=== PATIENT | female | born 1940 | race Caucasian/White ===

== ENCOUNTER 2017-06-18 10:22 | Emergency (ER) | payer BC, MEDICARE, OTHER ==
[~2017-06-18] VITALS: Ht 152.4 cm; Wt 87.7 kg
[~2017-06-18 10:22] MED LIST: ACET1TAB84 PO; ACT15 PO; ATEN50TA8 PO; BYTI10 SQ; DIGO0.122 PO; DILT1TAB58 PO; GLC500 PO; LISI10TA PO; MAGN400T6 PO; MULT-513 PO; PRAV20TA PO; PRD75 PO; PRESERVISION AREDS PO; PRLSR20 PO; SYN125 PO
[2017-06-18 10:24] VITALS: TEMP 36.4; Ht 152.4 cm; Wt 87.7 kg
[2017-06-18] MEDS ORDERED: MULT-190 PO (10:44)
[2017-06-18] MEDS ORDERED: LISI40TA PO (10:44)
[2017-06-18] MEDS ORDERED: BYTI10 SC (10:44)
[2017-06-18] MEDS ORDERED: ATOR-24 PO (10:44)
[2017-06-18] MEDS ORDERED: METF-384 PO (10:44)
[2017-06-18] MEDS ORDERED: HYDR12.56 PO (10:44)
[2017-06-18] MEDS ORDERED: MULT-506 PO (10:44)
[2017-06-18] MEDS ORDERED: ATEN50TA8 PO (10:44)
[2017-06-18] MEDS ORDERED: DILT-113 PO (10:44)
[2017-06-18] MEDS ORDERED: ASPI325T45 PO (10:44)
[2017-06-18] MEDS ORDERED: NAPR1TAB9 PO (10:44)
[2017-06-18] MEDS ORDERED: LEVO112T2 PO (10:44)
[2017-06-18] MEDS ORDERED: XYLOCAINE 1%/SOD BICARB 20 ML VIAL INFIL ONE (11:00)
--- NOTE | 2017-06-18 11:04 | EMERGENCY ROOM VISIT NOTE ---
History Report prepared by Christian: Roberto Santiago Under the Supervision of: Dr. Zain Duggan M.D. First contact with patient: 10:39 Chief Complaint: INFECTION Stated Complaint: INFECTED TOE NAIL Nursing Triage Summary: Right great toe pain, redness and swelling per pt. hx of NIDDM Pt states she called her quenching machine operator and was told to come to the ER History of Present Illness The patient is a 76 year old female who presents to the Emergency Room with complaints of a worsening infected right great toe nail for the past few days. The patient states that she has a history of ingrown toe nails, and she states that they have been fixed before. The patient denies any fevers, chills, cough, congestion, nausea, vomiting, diarrhea, constipation, or urinary symptoms. The patient additionally states that she is diabetic. Source of History: patient Onset: a few days ago Position: toe(s) (left great toe) Quality: other (infected) Timing: worsening Associated Symptoms: No fevers, No chills, No cough, No nausea, No vomiting , No diarrhea, No urinary symptoms Review of Systems See HPI for pertinent positives and negatives. A total of ten systems were reviewed and were otherwise negative. Past Medical & Surgical Medical Problems: (1) Ingrowing nail Family History Cancer Diabetes mellitus FH: gallbladder disease Social History Smoking Status: Never Smoker Marital Status: Occupation Status: retired Current/Historical Medications Scheduled Aspirin (Aspirin), 325 MG PO DAILY Atenolol (Tenormin), 50 MG PO BID Atorvastatin (Lipitor), 40 MG PO QPM Diltiazem Hcl Ext Rel (Tiazac), 180 MG PO BID Exenatide (Byetta), 10 MCG SC BID Hydrochlorothiazide (Hctz), 12.5 MG PO DAILY Levothyroxine Sodium (Synthroid), 112 MCG PO DAILY Lisinopril (Zestril), 40 MG PO QAM Metformin Hcl (Glucophage), 1,000 MG PO BID Multivitamin (Multivitamin), 1 TAB PO DAILY Ocuvite Preservision (Ocuvite Preservision), 1 TAB PO BID Scheduled PRN Naproxen (Aleve), 220-440 MG PO BID PRN for Pain Allergies Coded Allergies: No Known Allergies (Unverified , 12/11/11) Physical Exam Vital Signs Date Time Temp Pulse Resp B/P (MAP) Pulse Ox O2 Delivery O2 Flow Rate FiO2 06/18/17 12:38 62 20 153/83 99 Room Air 06/18/17 10:24 36.4 63 18 140/73 97 Room Air Physical Exam GENERAL: Awake, alert, well-appearing, in no distress HENT: Normocephalic, atraumatic. Oropharynx unremarkable. EYES: Normal conjunctiva. Sclera non-icteric. NECK: Supple. No nuchal rigidity. FROM. No JVD. RESPIRATORY: Clear to auscultation. CARDIAC: Regular rate, normal rhythm. Extremities warm and well perfused. Pulses equal. ABDOMEN: Soft, non-distended. No tenderness to palpation. No rebound or guarding. No masses. RECTAL: Deferred. MUSCULOSKELETAL: Chest examination reveals no tenderness. The back is symmetrical on inspection without obvious abnormality. There is no CVA tenderness to palpation. No joint edema. LOWER EXTREMITIES: Right great to with ingrown toe nail in the lateral aspect of the nail bed with mild erythema but no fluctuance or induration. Calves are equal size bilaterally and non-tender. No edema. No discoloration. NEURO: Normal sensorium. No sensory or motor deficits noted. SKIN: No rash or jaundice noted. Medical Decision & Procedures Procedure Digital Block Indication: ingrown toenail Verbal consent obtained. Risks and benefits were explained with the usual customary discussion. A time out was taken. The skin was prepped with Betadine. Using sterile technique, 2.5 mL's of buffered lidocaine 1% was injected into the base of the first digit bilaterally. Lateral aspect of great toe nail was trimmed while pulling away the nail bed with forceps. No complications. The patient tolerated the procedure well. ED Course 1039: The patient was evaluated in room C10. A complete history and physical exam was performed. 1100: Buffered Lidocaine 1% Inj 20ml INFIL 1206: I reevaluated the patient, and I performed the procedure. The patient was feeling well after the procedure, and I discussed discharge instructions with her. She was agreeable. The patient was discharged home. Medical Decision I reviewed the patient's past medical history, medications, and the nursing notes as described above. Differential Diagnoses include: Ingrown toenail vs paronychia, cellulitis, osteomyelitis. The patient is a 76-year-old woman with a past medical history of diabetes who presents emergency department with concern for an ingrown toenail in her right great toe and because of the pain was worsening she could not wait until Thursday when her quenching machine operator is available per history of present illness. On arrival the patient is distress, afebrile with stable vital signs. Her right great toe has mild tenderness and redness to the lateral aspect of the nailbed, without any fluctuance concerning for paronychia. The patient had a digital block and the ingrown toenail was trimmed without complications per procedure note. Concerning no signs of infection and patient is afebrile and otherwise well- appearing no need for labs or antibiotics at this time. Findings and plan for follow-up d/w patient. Patient agreeable and d/c'd per discharge instructions. Medication Reconcilliation Current Medication List: was personally reviewed by me Blood Pressure Screening Patient's blood pressure: Elevated blood pressure Blood pressure disposition: Elevated BP felt to be situational Impression Primary Impression: Ingrown right big toenail Scribe Attestation The scribe's documentation has been prepared under my direction and personally reviewed by me in its entirety. I confirm that the note above accurately reflects all work, treatment, procedures, and medical decision making performed by me. Departure Information Dispostion Home / Self-Care Referrals No Doctor, Assigned (PCP) Forms HOME CARE DOCUMENTATION FORM, IMPORTANT VISIT INFORMATION, WORK / SCHOOL INSTRUCTIONS Patient Instructions ED Ingrown Toenail Excised, ED Ingrown Toenail No Infec Home Tx, Ingrown Toenails, My [facility] Additional Instructions Please follow up with your quenching machine operator on Thursday for reevaluation. Your ingrown toenail was excised. Otherwise, your exam did not show signs of infection or of an emergent condition otherwise at this time. Return to the emergency department for worsening symptoms as described in the accompanying instructions.
[2017-06-18 12:38] VITALS: BP 153/83; PULSE 62; O2SAT 99
== END 2017-06-18 13:16 | disposition home or self-care (01) ==
LOC: C.EDB 10:24 → C.EDC 13:16
DX: L60.0 Ingrowing nail (principal); E11.9 Type 2 diabetes mellitus without complications; Z80.9 Family history of malignant neoplasm, unspecified; Z83.3 Family history of diabetes mellitus; Z79.82 Long term (current) use of aspirin; Z79.899 Other long term (current) drug therapy

== ENCOUNTER 2019-06-02 07:44 | Inpatient (IN) ==
--- NOTE | 2019-05-25 14:02 | PAT Medication Instructions ---
Medication Instructions Date of Service May 25, 2019 Home Medications Byetta 10 mcg SUBCUT BID aspirin 325 mg PO QAM atenolol 50 mg PO BID diltiazem HCl 180 mg PO BID hydrochlorothiazide 12.5 mg PO QAM levothyroxine 112 mcg PO QAM lisinopril 40 mg PO QAM lorazepam 0.5 mg PO HS PRN meloxicam 15 mg PO QPM metformin 1,000 mg PO BID multivitamin 1 tab PO DAILY atorvastatin 80 mg PO QPM cholecalciferol (vitamin D3) [Vitamin D3] 1,000 unit PO DAILY cyanocobalamin (vitamin B-12) [Vitamin B-12] 1,000 mcg PO DAILY pantoprazole 40 mg PO QAM vit C,S-Yj-igtvg-lutein-zeaxan [PreserVision AREDS-2] 1 tab PO BID ASK your surgeon for instructions meloxicam 15 mg PO QPM ASK your prescriber and surgeon aspirin 325 mg PO QAM STOP taking 2 weeks before surgery (or as soon as possible if surgery is within 2 weeks) vit C,V-Xx-msjtx-lutein-zeaxan [PreserVision AREDS-2] 1 tab PO BID DO NOT take the morning of surgery hydrochlorothiazide 12.5 mg PO QAM lisinopril 40 mg PO QAM metformin 1,000 mg PO BID multivitamin 1 tab PO DAILY cholecalciferol (vitamin D3) [Vitamin D3] 1,000 unit PO DAILY cyanocobalamin (vitamin B-12) [Vitamin B-12] 1,000 mcg PO DAILY Take morning of surgery With a small sip of water, OTHERWISE NOTHING TO EAT OR DRINK AFTER MIDNIGHT: Byetta 10 mcg SUBCUT BID atenolol 50 mg PO BID diltiazem HCl 180 mg PO BID levothyroxine 112 mcg PO QAM pantoprazole 40 mg PO QAM Take evening before surgery Byetta 10 mcg SUBCUT BID atenolol 50 mg PO BID diltiazem HCl 180 mg PO BID lorazepam 0.5 mg PO HS PRN (if needed) metformin 1,000 mg PO BID atorvastatin 80 mg PO QPM Other Notes If you have any questions please call us at [phone] or [phone] or or [phone]
--- NOTE | 2019-05-26 11:13 | Anesthesiology Consultation ---
Date of Service May 26, 2019 Assessment & Plan (1) Encounter for pre-operative examination: - Cardio: 05/27/19: "She is currently stable and asymptomatic from a cardiovascular standpoint with no anginal symptoms occurring at >4 METS of activity. She has no evidence of CHF or significant valvular abnormality. Her heart rate and blood pressure are well controlled. Given this information, the patient is at an acceptable risk to proceed with upcoming surgery without any additional cardiovascular testing or intervention. She should remain on atenolol and diltiazem throughout the perioperative period.. Will initiate Eliquis 5 mg BID.. She will not start the Eliquis until after her surgery, once safe from a bleeding standpoint." - S/P left CTR: 03/04/19: MAC sedation at [facility]. - Check BSG AM DOS - ASA 325mg: instructions per surgeon/prescriber. Chart Review Chart Review: Acceptable Risk for Surgery and Patient seen in Pre Admission Testing Teaching & Discussion Pre-Anesthesia Teaching/Discussion Notes: Instructed NPO after midnight before surgery,except medications with 15 cc of water. Medication instructions provided according to the PAT guidelines. History Surgery Operation Date: 06/02/19 09:20 Proposed Procedures p Left Total Knee Arthroplasty - Sanjay Long MD Height/Weight Height: 5 ft Weight: 91.9 kg Allergies Allergy/AdvReac Type Severity Reaction Status Date / Time rivaroxaban [From Xarelto] AdvReac Epistaxis Verified 05/27/19 14:01 Medications Home Medications Medication Instructions Recorded Confirmed Last Taken Byetta 10 mcg SUBCUT BID 02/17/19 05/27/19 Unknown atenolol 50 mg PO BID 02/17/19 05/27/19 03/01/19 05:45 diltiazem HCl 180 mg PO BID 02/17/19 05/27/19 03/01/19 05:45 hydrochlorothiazide 12.5 mg PO QAM 02/17/19 05/27/19 Unknown levothyroxine 112 mcg PO QAM 02/17/19 05/27/19 03/01/19 05:45 lisinopril 40 mg PO QAM 02/17/19 05/27/19 03/01/19 05:45 lorazepam 0.5 mg PO HS PRN 02/17/19 05/27/19 Unknown metformin 1,000 mg PO BID 02/17/19 05/27/19 Unknown multivitamin 1 tab PO DAILY 02/17/19 05/27/19 Unknown atorvastatin 80 mg PO QPM 05/24/19 05/27/19 Unknown cholecalciferol (vitamin D3) 1,000 unit PO DAILY 05/24/19 05/27/19 Unknown [Vitamin D3] cyanocobalamin (vitamin B-12) 1,000 mcg PO DAILY 05/24/19 05/27/19 Unknown [Vitamin B-12] pantoprazole 40 mg PO QAM 05/24/19 05/27/19 Unknown apixaban 5 mg tablet 5 mg PO BID #180 tab 05/27/19 05/27/19 Unknown vit C 250 mg-E 200 unit-zinc 40 1 tab PO BID 05/27/19 05/27/19 Unknown mg-copper 1 rq-okqvyv-olxkcu capsule Past Medical History Medical History Atrial fibrillation previously on Xarelto in the past (but discontinued 2/2 epistaxis felt r/t AVM); now on ASA/cardizem/beta amarjit Diabetes mellitus, type 2 GERD (gastroesophageal reflux disease) controlled Hyperlipidemia Hypertension Hypothyroidism LBBB (left bundle branch block) chronic dating back to at least 2011 Macular degeneration Peptic ulcer disease Exercise / Class Metabolic Activity II 4-5 Yardwork/Stairs/Walk up hill Past Family History Family History Mother Family history of diabetes mellitus Past Surgical History Surgical History History of appendectomy History of bilateral tubal ligation History of carpal tunnel release left History of cataract surgery BILATERAL History of cholecystectomy History of colonoscopy History of esophagogastroduodenoscopy (EGD) History of herniorrhaphy INCISIONAL History of tonsillectomy S/P foot surgery, left bone spur removal S/P right knee arthroscopy Past Anesthesia History No Hx of Anesthesia Complications and No Family Hx of Anesthesia Complications History of PONV No Hx of PONV and Hx of Motion Sickness (mild) Social History Smoking Status: Never smoker Do You Dip or Chew Tobacco: No Hx Alcohol Use: No Hx Substance Use: No substance use type: does not use Review of Systems Reflux controlled. Patient denies chest pain, shortness of breath, dyspnea on exertion, cough, wheezing, palpitations. Physical Exam Vital Signs VITALS BP 114/50; recheck 157/84* P 71 TEMP 97.7 SP02 99%RA RESP 18 PHYSICAL Full neck and c-spine range of motion. Full TMJ range of motion. TMD 3.5 finger breaths Mallampati Score 1 Dentition: intact, upper front caps Lungs: clear throughout to auscultation Cardiac: regular rate and rhythm, no murmurs noted Spine: normal Carotid arteries: negative bruit Extremities: no edema Short, thick neck Testing Laboratory Results 05/26/19 11:30 05/26/19 11:30 PT 9.7 Seconds (9.0-12.0) 05/26/19 11:20 INR 0.9 (0.9-1.1) 05/26/19 11:20 APTT 23.7 Seconds (21.0-31.0) 05/26/19 11:20 Hemoglobin A1c 5.4 % (4.5-5.6) 05/26/19 11:30 Blood Type B Positive 05/26/19 11:30 Antibody Screen NEGATIVE 05/26/19 11:30 Electrocardiogram Date: 05/26/19 NSR at 70bpm. LAD. LBBB. Chest X-Ray Date: 05/26/19 Findings: + NAD
--- NOTE | 2019-05-26 11:54 | XRay Report ---
XR chest Pre-admission PA/Lat CLINICAL HISTORY: pat preoperative evaluation COMPARISON STUDY: No previous studies for comparison. FINDINGS: The bones soft tissues and hemidiaphragms are normal. The cardiomediastinal silhouette is n ormal. The lungs are clear. The pulmonary vasculature is normal. IMPRESSION: Negative chest. The above report was generated using voice recognition software. It may contain grammatical, syntax or spelling errors. Electronically signed by: Kunal Alfonso M.D. 05/26/2019 11:52 AM
[2019-05-26 12:07] LABS: Basophils # (auto) 0.01 K/uL (0-0.2); Basophils % (auto) 0.2 %; Eosinophils # (auto) 0.14 K/uL (0-0.5); Eosinophils % (auto) 2.6 %; Hematocrit (blood only) 35.7 % (37-47); Hemoglobin 12.2 g/dL (12.0-16.0); Immature Granulocytes # (auto) 0.01 K/uL (0.00-0.02); Immature Granulocytes % (auto) 0.2 %; Lymphocytes # (auto) 1.18 K/uL (1.2-3.4); Lymphocytes % (auto) 22.3 %; Mean Corpuscular Hemoglobin 29.7 pg (25-34); Mean Corpuscular Hgb Conc 34.2 g/dL (32-36); Mean Corpuscular Volume 86.9 fL (80-100); Monocytes # (auto) 0.47 K/uL (0.11-0.59); Monocytes % (auto) 8.9 %; Neutrophils # (auto) 3.48 K/uL (1.4-6.5); Neutrophils % (auto) 65.8 %; Platelet Count 219 K/uL (130-400); RDW Coefficient of Variation 14.3 % (11.5-14.5); RDW Standard Deviation 45.2 fL (36.4-46.3); Red Blood Count 4.11 M/uL (4.2-5.4); White Blood Count 5.29 K/uL (4.8-10.8)
[2019-05-26 12:16] LABS: BUN Creatinine Ratio 22.8 (10-20); Calcium 9.1 mg/dl (8.5-10.1); Creatinine Clr Calc Pharmacy 43.2 ml/min; Est GFR (African American) 55.3; Est GFR (Non-African American) 47.7; Potassium 4.3 mmol/L (3.5-5.1)
[2019-05-26 12:27] LABS: INR 0.9 (0.9-1.1); Partial Thromboplastin Ratio 0.9; Partial Thromboplastin Time 23.7 Seconds (21.0-31.0); Prothrombin Time 9.7 Seconds (9.0-12.0)
[2019-05-26 12:38] LABS: Estimated Average Glucose 108 mg/dl; Hemoglobin A1C 5.4 % (4.5-5.6)
--- NOTE | 2019-05-29 18:23 | History and Physical Report ---
DATE OF ADMISSION: 06/02/2019 CHIEF COMPLAINT: Left knee pain. HISTORY OF PRESENT ILLNESS: A 78-year-old female who presents for surgical treatment of her left knee. She has got a long history of intermittent left knee pain and discomfort which has gradually gotten worse over the past 6 months. She describes global pain in the knee. The more she walks, the more it hurts. She had 1 injection which helped her for couple days and that is about it. She has taken medicines without much relief at all. Her walking tolerance is a couple of blocks. She limps more as the day goes on. She has night pain. She would like to have her knee fixed. PAST MEDICAL HISTORY: Significant for: 1. Diabetes x15 years with a hemoglobin A1c of 5.4. 2. Macular degeneration. 3. Hypertension. 4. Gastroesophageal reflux disease. 5. Obesity with BMI of 40. PAST SURGICAL HISTORY: Include: 1. Right knee arthroscopy. 2. Hernia repair. 3. Bone spur removal. 4. Carpal tunnel release. 5. Cataract surgery. 6. Tubal ligation. 7. Cholecystectomy. 8. Pilonidal cyst excision. ALLERGIES: None. CURRENT MEDICINES: 1. Atenolol 50 mg twice a day. 2. Metformin 1000 mg twice a day. 3. Lisinopril 40 mg. 4. Viagra twice a day. 5. Diltiazem 180 mg twice a day. 6. PreserVision twice a day. 7. Pantoprazole 40 mg once a day. 8. Aspirin 325 once a day. 9. Levothyroxine 112 mcg daily. 10. Multivitamin. 11. Aleve. 12. Vitamin D. 13. Vitamin B12. 14. Atorvastatin 80 mg at bedtime. 15. Hydrochlorothiazide 12.5 mg a day. 16. Repaglinide 1 mg before meals. 17. Lorazepam 1 mg as needed. SOCIAL HISTORY: A 78-year-old female. She is . Does not smoke. FAMILY HISTORY: Noncontributory. REVIEW OF SYSTEMS: Significant for diabetes, very well controlled. Denies any chest pain or shortness of breath. No history of DVT or PE. No known bleeding problems. PHYSICAL EXAMINATION: GENERAL: Shows a pleasant, middle-aged female. Looks to be in pretty good health. HEENT: Benign. NECK: Supple, no lymphadenopathy. LUNGS: Clear to auscultation. HEART: Has a regular rate and rhythm. ABDOMEN: Soft, nontender, nondistended. EXTREMITIES: Grossly neurovascularly intact except as follows: Examination of the knee reveals patient walks with a slight bit of an antalgic gait. She has fairly neutral alignment to her knee. Little tender over the medial joint line. Small knee effusion. Range of motion about 10 degrees show full extension to 110 degrees of flexion. She has no pain with hip motion. She is neurologically intact. X-RAYS: Left knee reviewed. Shows advanced knee DJD. She has complete loss of medial joint space. She has subchondral sclerosis and osteophytes in all 3 compartments. ASSESSMENT: A 78-year-old white female with advanced left knee degenerative joint disease. She has failed conservative treatment and would like to proceed with left knee replacement. PLAN: We will take her to the operating room and do a left total knee replacement. The risks and benefits of this procedure were explained to the patient including but not limited to DVT, PE, , infection, neurological injury, vascular injury, bleeding problem, pain, limited range of motion, stiffness, failure to relieve symptoms, incomplete relief of symptoms, need for further surgery in future, fracture, leg length inequality, nerve palsy, etc. The patient understands and desires to proceed. Informed consent was obtained. We did talk about holding her lisinopril and metformin in the morning of surgery. She will take her atenolol. She is planning to be discharged home using [facility] home health program.
[~2019-06-02 07:44] MED LIST changes: -ACET1TAB84 PO; +ACETAMINOPHEN 500 MG TAB PO SCH; -ACT15 PO; -ATEN50TA8 PO; +BUPIVACAINE 0.5 % 5 MG/1 ML PF 10ML VIAL ONE; +BUPIVACAINE LIPOSOME/PF 266 MG, BUPIVACAINE/EPINEPHRINE 50 ML, SODIUM CHLORIDE 0.9% 30 ... INFIL SCH; -BYTI10 SQ; +CEFAZOLIN 2000MG 2,000 MG/15 ML SYR IV SCH; -DIGO0.122 PO; -DILT1TAB58 PO; +FAMOTIDINE 20 MG TAB PO SCH; +GABAPENTIN 300 MG CAP PO SCH; -GLC500 PO; -LISI10TA PO; +LR 500ML BOLUS, THEN 15ML/HR IV SCH; +LR 60ML/HR IV SCH; -MAGN400T6 PO; +METOCLOPRAMIDE HCL 10 MG TABLET PO SCH; -MULT-513 PO; -PRAV20TA PO; -PRD75 PO; -PRESERVISION AREDS PO; -PRLSR20 PO; +ROPIVACAINE 0.5% 5 MG/ML 30 ML VIAL ONE; -SYN125 PO; +TRANEXAMIC ACID 1,000 MG **IV Intra-op IV SCH
--- NOTE | 2019-06-02 08:25 | History & Physical Bridge Note ---
Date of Service June 02, 2019 History & Physical Bridge Note I have examined the patient, reviewed the History & Physical and in the interval since the performance of the History & Physical I have noted the following changes of clinical significance: no changes noted
[2019-06-02] MEDS ORDERED: fentaNYL citrate 100 MCG/2 ML VIAL ONE (09:34)
[2019-06-02] MEDS ORDERED: MIDAZOLAM HCL 1 MG/ML 2ML VIAL ONE ×2 (09:34)
[2019-06-02] MEDS ORDERED: SODIUM CHLORIDE 0.9% PF 50 ML VIAL ONE (09:41)
[2019-06-02] MEDS ORDERED: BUPIVACAINE LIPOSOME 1.3% 266 MG/20 ML VIAL ONE (09:41)
[2019-06-02] MEDS ORDERED: BACITRACIN INJ 50,000 UNIT VIAL ONE (09:42)
[2019-06-02] MEDS ORDERED: BUPIVACAINE/EPINEPHRINE 0.25% 1:200,000 30 ML VIAL ONE (09:43)
[2019-06-02] MEDS ORDERED: ePHEDrine sulfate 50 MG/ML AMP IV PRN (09:47)
[2019-06-02] MEDS ORDERED: HYDROmorphone INJ 1 MG/ML SYRINGE IV PRN (09:47)
[2019-06-02] MEDS ORDERED: KETOROLAC 30 MG/ML VIAL IV PRN (09:47)
[2019-06-02] MEDS ORDERED: ONDANSETRON INJ 2 MG/ML 2 ML VIAL IV PRN ×2 (09:47→13:23)
[2019-06-02] MEDS ORDERED: ATROPINE SULFATE 0.1 MG/ML 10ML SYR IV PRN (09:47)
[2019-06-02] MEDS ORDERED: PHENYLEPHRINE 100MCG/ML 5ML SYR IV PRN (09:49)
[2019-06-02] MEDS ORDERED: LIDOCAINE HCL 2% 2 ML VIAL/AMP(20MG/ML) INFIL ONE (11:57)
[2019-06-02] MEDS ORDERED: PROPOFOL IV EMULSION 10 MG/ML 20 ML VIAL IV ONE (11:57)
--- NOTE | 2019-06-02 12:06 | Post Operative Brief Note ---
PG Immediate Post Op with CF Date of Surgery June 02, 2019 Pre & Post Diagnosis Operation Date: 06/02/19 10:40 Pre-Op Diagnosis: Left Knee Degenerative Joint Disease Post-Op Diagnosis: Left Knee Degenerative Joint Disease Procedure Operation Date: 06/02/19 10:40 Actual Procedures p Left Total Knee Arthroplasty(Left) - Sanjay Long MD Surgeon Sanjay Long MD Costume Shop Coordinator Brennan, PAC Estimated Blood Loss 50 Findings Consistent with Post-Op Diagnosis Fluids 1300 cc Specimens Specimen Description: Permanent Solution: A.) Left Knee Bone and Tissue Drains Cardenas Catheter (16 slovak 10ml balloon) Anesthesia Type Spinal MAC Complications none Disposition Accompanied Patient To Recovery: No Disposition: Recovery Room
[2019-06-02] MEDS ORDERED: MEPERIDINE HCL 25 MG/ML CARP ONE (12:30)
[2019-06-02] MEDS ORDERED: MEPERIDINE HCL 25 MG/ML CARP IV STA (12:31)
--- NOTE | 2019-06-02 12:41 | XRay Report ---
XR knee LT 2V routine CLINICAL HISTORY: Postoperative evaluation. COMPARISON: Left knee radiographs February 04, 2019. FINDINGS: Alignment of the left knee arthroplasty is anatomic. There is no fracture or unexpected ra diopaque foreign body. There are skin james. IMPRESSION: Expected findings following total left knee arthroplasty. Electronically signed by: Ford Stevenson M.D. 06/02/2019 12:40 PM
--- NOTE | 2019-06-02 13:20 | Anesthesiology Progress Note ---
Date of Service June 02, 2019 Anesthesia Post Procedure Vital Signs Vital Signs: Temp Pulse Pulse Resp BP BP Pulse Ox 06/02/19 12:50 36.3 C L 63 14 109/86 100 06/02/19 12:40 36.3 C L 64 14 144/55 H 100 06/02/19 12:30 68 17 139/62 100 06/02/19 12:20 65 16 138/56 L 99 06/02/19 12:10 36.1 C L 67 21 125/56 L 99 06/02/19 08:24 36.5 C 70 18 138/50 L 99 Transfer of Care Handoff Completed per policy Notes Mental Status: alert / awake / arousable Patient Amnestic to Procedure: Yes Nausea / Vomiting: adequately controlled Pain: adequately controlled Airway Patency, RR, SpO2: stable & adequate BP & HR: stable & adequate Hydration State: stable & adequate Neuraxial Anesthesia: was administered and sensory block is resolving Anesthetic Complications: no major complications apparent
[2019-06-02] MEDS ORDERED: LORazepam 0.5 MG TAB PO PRN (13:23)
[2019-06-02] MEDS ORDERED: MAGNESIUM HYDROXIDE SUSP 30 ML UDC PO PRN (13:23)
[2019-06-02] MEDS ORDERED: HYDROmorphone INJ 0.5 MG/0.5 ML SYR IV PRN (13:23)
[2019-06-02] MEDS ORDERED: BISACODYL 10 MG SUPP PR PRN (13:23)
[2019-06-02] MEDS ORDERED: ALUMINUM/MAGNESIUM SUSP 30 ML UDC PO PRN (13:23)
[2019-06-02] MEDS ORDERED: NALOXONE HCL 0.4 MG/1 ML VIAL/CARP IV PRN (13:23)
[2019-06-02] MEDS ORDERED: METOCLOPRAMIDE HCL INJ 5 MG/ML 2 ML VIAL IV PRN (13:23)
[2019-06-02] MEDS: SODIUM CHLORIDE 0.9% 1000ML 1,000 ML IV SCH ×2 (14:11→23:04)
[2019-06-02] MEDS: KETOROLAC TROMETHAMINE 15 MG/ML VIAL IV SCH ×2 (14:11→20:37)
[2019-06-02] MEDS: ACETAMINOPHEN 500 MG TAB PO SCH ×2 (16:24→23:05)
[2019-06-02] MEDS ORDERED: GLUCAGON FOR INJ 1 MG VIAL SQ PRN (17:36)
[2019-06-02] MEDS ORDERED: GLUCOSE 10 TABS/TUBE PO PRN (17:36)
[2019-06-02] MEDS ORDERED: CARBOHYDRATES FOR HYPOGLYCEMIA PO PRN (17:36)
[2019-06-02] MEDS ORDERED: DEXTROSE 50% 50 ML SYRINGE IV PRN (17:36)
[2019-06-02] MEDS ORDERED: GLUCOSE 40% GEL 15 GM TUBE PO PRN (17:36)
[2019-06-02] MEDS: FERROUS GLUCONATE 324 MG TAB PO SCH (17:37)
[2019-06-02] MEDS: ASCORBIC ACID 500 MG TAB PO SCH (17:37)
[2019-06-02] MEDS: CEFAZOLIN 2000MG 2,000 MG/15 ML SYR IV SCH (17:51)
[2019-06-02] MEDS ORDERED: PHARMACY GLYCEMIC MGMT CONSULT PRN (17:55)
--- NOTE | 2019-06-02 18:10 | Progress Note ---
DATE: 06/02/2019 SUBJECTIVE: A 78-year-old white female postop from a left knee replacement. She is doing well. Not having much pain. No chest pain or shortness of breath. She says she feels great. OBJECTIVE: VITAL SIGNS: Temperature 36.6. Vital signs stable. GENERAL: Shows a pleasant elderly female. She is sitting in her bedside chair talking to family. Looks comfortable. LUNGS: Clear to auscultation. HEART: Has regular rate and rhythm. ABDOMEN: Soft, nontender, nondistended. EXTREMITIES: Grossly neurovascularly intact except as follows: Examination of the left lower extremity reveals the dressing to be clean, dry and intact. Leg is well aligned. She can dorsiflex and plantarflex her foot appropriately. She is neurologically intact. X-RAYS: X-ray of her left knee from recovery room reviewed. It shows left cemented posterior stabilized total knee arthroplasty. Components looked to be in good position. Slightly rotated film. No signs of problems. ASSESSMENT: A 78-year-old white female postop from a left knee replacement, doing well. Pain is controlled. She is neurologically intact. PLAN: 1. DVT prophylaxis including thigh-high TEDs, SCDs, and we are going to put her on Eliquis postoperatively. We will start her on a prophylactic dose for the first 2 days and then increase to therapeutic dose after that. 2. PT/OT. Weight bear as tolerated. Left total knee protocol. 3. Pain control, doing well with current pain regimen. 4. Disposition: She is planning to be discharged home with some home health once adequately recovered. 5. IV antibiotics x24 hours.
[2019-06-02] MEDS ORDERED: TRANEXAMIC ACID 1,000 MG in 0.9 % SODIUM CHLORIDE 100 ML IV SCH (18:13)
[2019-06-02] MEDS: DOCUSATE SODIUM 100 MG CAP PO SCH (20:38)
[2019-06-02] MEDS: SENNA 8.6 MG TAB PO SCH (20:39)
[2019-06-02] MEDS: ATORVASTATIN 40 MG TAB PO SCH (20:40)
[2019-06-02] MEDS: METFORMIN HCL 500 MG TAB PO SCH (20:42)
[2019-06-02] MEDS: ATENOLOL 50 MG TABLET PO SCH (20:55)
[2019-06-02] MEDS: INSULIN ASPART 100 UNITS/ML 3 ML PEN SC SCH (21:13)
[2019-06-02] MEDS: APIXABAN 2.5 MG TAB PO SCH (23:05)
[2019-06-03] MEDS: CEFAZOLIN 2000MG 2,000 MG/15 ML SYR IV SCH (02:06)
[2019-06-03] MEDS: KETOROLAC TROMETHAMINE 15 MG/ML VIAL IV SCH ×4 (02:07→20:52)
[2019-06-03] MEDS: LEVOTHYROXINE SODIUM 112 MCG TABLET PO SCH (05:17)
[2019-06-03] MEDS: ACETAMINOPHEN 500 MG TAB PO SCH ×3 (06:00→21:01)
[2019-06-03 06:08] LABS: Hematocrit (blood only) 26.7 % (37-47); Hemoglobin 9.3 g/dL (12.0-16.0); Mean Corpuscular Hemoglobin 29.9 pg (25-34); Mean Corpuscular Hgb Conc 34.8 g/dL (32-36); Mean Corpuscular Volume 85.9 fL (80-100); Mean Platelet Volume 8.3 fL (7.4-10.4); Platelet Count 163 K/uL (130-400); RDW Coefficient of Variation 13.9 % (11.5-14.5); Red Blood Count 3.11 M/uL (4.2-5.4); White Blood Count 5.17 K/uL (4.8-10.8)
[2019-06-03 06:39] LABS: BUN Creatinine Ratio 19.4 (10-20); Calcium 7.9 mg/dl (8.5-10.1); Creatinine Clr Calc Pharmacy 34.2 ml/min; Est GFR (African American) 42.2; Est GFR (Non-African American) 36.4; Potassium 3.9 mmol/L (3.5-5.1)
--- NOTE | 2019-06-03 07:25 | Anesthesiology Progress Note ---
Date of Service June 03, 2019 Anesthesia Post Procedure Vital Signs Vital Signs: Temp Pulse Pulse Pulse Resp BP BP 06/03/19 07:10 36.8 C 69 16 146/73 H 06/03/19 03:07 36.8 C 65 16 110/71 06/02/19 22:57 36.9 C 68 16 110/63 06/02/19 20:39 72 149/76 H 06/02/19 18:55 36.6 C 67 20 122/78 06/02/19 16:00 36.6 C 70 20 152/73 H 06/02/19 14:59 36.6 C 70 20 148/69 H 06/02/19 14:10 36.3 C L 62 16 166/73 H 06/02/19 13:40 36.7 C 62 18 164/77 H 06/02/19 13:10 36.4 C L 64 16 143/68 H 06/02/19 12:50 36.3 C L 63 14 109/86 06/02/19 12:40 36.3 C L 64 14 144/55 H 06/02/19 12:30 68 17 139/62 06/02/19 12:20 65 16 138/56 L 06/02/19 12:10 36.1 C L 67 21 125/56 L 06/02/19 08:24 36.5 C 70 18 138/50 L Pulse Ox 06/03/19 07:10 98 06/03/19 03:07 97 06/02/19 22:57 97 06/02/19 20:39 06/02/19 18:55 97 06/02/19 16:00 97 06/02/19 14:59 99 06/02/19 14:10 99 06/02/19 13:40 99 06/02/19 13:10 100 06/02/19 12:50 100 06/02/19 12:40 100 06/02/19 12:30 100 06/02/19 12:20 99 06/02/19 12:10 99 06/02/19 08:24 99 Notes Mental Status: alert / awake / arousable and participated in evaluation Patient Amnestic to Procedure: Yes Nausea / Vomiting: adequately controlled Pain: adequately controlled Airway Patency, RR, SpO2: stable & adequate BP & HR: stable & adequate Hydration State: stable & adequate Neuraxial Anesthesia: sensory block is resolving Anesthetic Complications: Pt Satisfied with anesthetic care
--- NOTE | 2019-06-03 07:36 | Operative Report ---
DATE OF OPERATION: 06/02/2019 SURGEON: Sanjay Long MD CHEMISTRY QUALITY CONTROL ANALYST: NANCI Cortes PREOPERATIVE DIAGNOSIS: Left knee degenerative joint disease. POSTOPERATIVE DIAGNOSIS: Left knee degenerative joint disease. PROCEDURE PERFORMED: Left cemented posterior stabilized total knee arthroplasty. COMPLICATIONS: None. ESTIMATED BLOOD LOSS: 5. FLUID REPLACEMENT: 1300 mL crystalloid fluid replacement. TOURNIQUET TIME: 59 minutes at 300 mmHg. ANESTHESIA: Spinal with adductor canal block. DRAINS: None. SPECIMENS: Left knee sent for pathology. OPERATIVE INDICATIONS: The patient is a 78-year-old female with a long history of left knee pain and discomfort. She has been through extensive conservative treatment in the past. This became less successful. It is markedly debilitated by her knee pain. X-rays reveal advanced tricompartmental DJD. She elected to proceed with operative treatment. OPERATIVE FINDINGS: Operative findings revealed advanced left knee DJD. She had extensive grade 4 [id number] disease of the medial aspect of the knee with eburnation of the medial side of the knee was ossified posteriorly. OPERATIVE IMPLANTS: Operative implants consisted of: 1. Biomet Vanguard 62.5 Posterior stabilized femoral component. 2. Biomet size 67 tibial tray. 3. A 10 mm posterior stabilized polyethylene insert. 4. A 28 x 8 all poly patella. OPERATIVE PROCEDURE: The patient taken to the operating room, identified and placed on the operating table in supine position. All contact areas were appropriately padded. IV antibiotics were provided by anesthesia team. A spinal anesthetic and adductor canal block had been provided in the holding area. Cardenas catheter was placed in sterile fashion. Left thigh tourniquet was then placed and left lower extremity was then prepped and draped in the usual sterile fashion. The left leg was elevated and exsanguinated with Esmarch and tourniquet was placed at 300 mmHg. An anterior approach of the left knee was then performed through a longitudinal incision centered over the patella. Sharp dissection was carried through subcutaneous tissues down to the level of the extensor mechanism. Medial parapatellar arthrotomy incision was made. Some subperiosteal dissection was carried out medially. The fat pad resected from beneath the patellar tendon. The lateral patellofemoral ligament was released. The patella was everted and knee was flexed. The osteophytes were taken off the distal femur. The ACL and PCL were then released from the distal femur and the tibia subluxated anteriorly. The external tibial alignment jig was then placed in the anterior face of the tibia and adjusted 14 mm medially. Proximal tibial cut was made to remove about a millimeter of bone from the most deficient aspect of the medial tibial plateau. Some osteophytes were taken off medial and posteromedially. Tibia sized to a size 67. Attention was then drawn to the femur. The distal femur was entered with a sharp drill bit. Intramedullary canal was suctioned. A left 5-degree valgus distal femoral cutting block was placed and cut made to take an additional 3 mm of bone off the distal femur. We then sized the distal femur to a 62.5, downsized this slightly. The AP cutting block was pinned parallel to the epicondylar axis. The osteophytes were taken off the posterior aspect of the femur. Trial femoral component was placed. Tibial tray was pinned in maximum external rotation and the drill and stem punch were used to create defect in proximal tibia for the tibial tray. The knee was then trialed and the 10 mm insert fit most appropriately. Attention was then drawn to the patella. The patella was cleaned of all soft tissues. Patella thickness measured about 18 mm in thickness, was cut down to 12. It was sized to a size 28 patella. Lug holes were drilled for the 28 patella. Lateral osteophyte was removed. Patella button was placed. Knee was taken through range of motion, patella tracked nicely with no thumbs test. Attention was then drawn toward placement of permanent components. All trial components were removed. Bone plug was placed in the distal femur to limit blood loss. A double batch of Palacos G cement was mixed. A Biomet Vanguard size 62.5 left posterior stabilized femoral component, size 67 tibial tray, a 10 mm posterior stabilized polyethylene insert, and a 28 x 8 all poly patella then cemented in place. Knee was brought out into full extension until cement hardened. A final cement check was then performed. Pericapsular tissues were injected with total of 100 mL of a combination of 20 mL Exparel, 30 mL of normal saline, 50 mL of 0.25% Marcaine with epinephrine. The patient did receive 1 gram of tranexamic acid. The tourniquet was then let down for final tourniquet time of 59 minutes. Hemostasis was assured using electrocautery. The extensor mechanism was then closed with combination of #1 PDS suture and #1 Vicryl suture in a [id number] fashion. Extensor mechanism was checked and found to be intact. The subcutaneous tissue was then closed with #2 Dexon suture in a buried interrupted fashion. Skin was closed with skin james. Leg was then cleaned and dried and a sterile dressing with Xeroform, 4 x 4, sterile cast padding and Aleks bandage were applied. The patient then transferred to the recovery room in stable condition. The patient tolerated the procedure well with no complications. All needle and sponge counts were correct at the end of the operation. I attest to the content of the Intraoperative Record and any orders documented therein. Any exceptions are noted below. RANDYD
--- NOTE | 2019-06-03 07:39 | Progress Note ---
DATE: 06/03/2019 SUBJECTIVE: A 78-year-old white female postop day 1 from a left knee replacement. She is doing well. No significant pain. No chest pain or shortness of breath. Not feeling dizzy or lightheaded. OBJECTIVE: VITAL SIGNS: Temperature is 36.8. Vital signs stable. GENERAL: Physical examination shows a pleasant elderly female. She is lying in bed, looks pretty comfortable. She is doing a heel prop and pretty comfortable. EXTREMITIES: Examination of the left leg reveals moderate to large soft tissue envelope. Dressing is clean, dry and intact. She can dorsiflex and plantarflex her foot appropriately. She is neurologically intact. LABORATORY DATA: Hemoglobin 9.3. Hematocrit 26.7. Electrolytes are stable. Creatinine just slightly elevated. ASSESSMENT: A 78-year-old white female postop day 1 from a left knee replacement, doing well. Her pain is controlled. She is neurologically intact. PLAN: 1. DVT prophylaxis including thigh-high TEDs, SCDs, and Eliquis. She is on a prophylactic dose now and we will convert her to a full dose on discharge. 2. PT/OT. Weight bear as tolerated. Left total knee protocol. 3. Pain control. Doing pretty well with current pain regimen. 4. Disposition: Plan to discharge to home with some home health once adequately recovered and medically stable.
[2019-06-03] MEDS: DOCUSATE SODIUM 100 MG CAP PO SCH ×2 (08:48→20:49)
[2019-06-03] MEDS: hydroCHLOROthiazide 25 MG TAB PO SCH (08:49)
[2019-06-03] MEDS: APIXABAN 2.5 MG TAB PO SCH ×2 (08:50→20:51)
[2019-06-03] MEDS: PANTOprazole 40 MG TAB PO SCH (08:50)
[2019-06-03] MEDS: METFORMIN HCL 500 MG TAB PO SCH ×2 (08:50→20:52)
[2019-06-03] MEDS: LISINOPRIL 40 MG TAB PO SCH (08:50)
[2019-06-03] MEDS: CYANOCOBALAMIN 500 MCG TABLET (VITAMIN B-12) PO SCH (08:51)
[2019-06-03] MEDS: FERROUS GLUCONATE 324 MG TAB PO SCH ×2 (08:51→18:06)
[2019-06-03] MEDS: CHOLECALCIFEROL 1,000 UNITS TAB PO SCH (08:51)
[2019-06-03] MEDS: MULTIVITAMIN TAB PO SCH (08:51)
[2019-06-03] MEDS: ASCORBIC ACID 500 MG TAB PO SCH ×2 (08:52→18:06)
[2019-06-03] MEDS ORDERED: MULTIVITAMIN TAB PO SCH (09:00)
[2019-06-03] MEDS ORDERED: LEVOTHYROXINE SODIUM 112 MCG TABLET PO SCH (09:00)
[2019-06-03] MEDS: TRAMADOL HCL 50 MG TABLET PO PRN ×2 (09:02→21:01)
[2019-06-03] MEDS: ATENOLOL 50 MG TABLET PO SCH ×2 (09:03→20:54)
[2019-06-03] MEDS: INSULIN ASPART 100 UNITS/ML 3 ML PEN SC SCH ×4 (09:07→20:51)
[2019-06-03 15:33] VITALS: TEMP 97.9
--- NOTE | 2019-06-03 16:23 | Pharmacy Report ---
Pharmacy Glycemic Short Note 2 - Date of Service June 03, 2019 - Glycemic Short BSG Results (Last 24 hours): 06/02/19 06/02/19 06/03/19 17:10 21:06 05:45 Glucose 93 POC Glucose 111 H 109 H 06/03/19 06/03/19 08:15 12:09 Glucose POC Glucose 124 H 130 H OUTPATIENT ANTIDIABETIC REGIMEN: * Metformin 1000mg BID * Byetta 10mcg SC BID ASSESSMENT: * BG has ranged 90-130 past 24 hours without any insulin given. Will continue correctional Novolog ACHS. If she still does not require insulin, will sign off glycemic consult on 06/04/19. PLAN FOR INPATIENT GLYCEMIC CONTROL: * Hold outpatient oral diabetes medications * Basal insulin - NOT NEEDED * Bolus insulin * NovoLog per scale ACHS or Q6hrs while NPO * Goal Range: Low 110 mg/dL - High 140 mg/dL * Correction Factor: 30 mg/dL/unit * Nutritional / Prandial insulin per carb ratio of 1 unit per -- grams CHO consumed (NO CARB COVERAGE) PLAN FOR DISCHARGE: * Recommend to resume outpatient Byetta and metformin at time of discharge. Diabetes appears to be well controlled as outpatient with HbA1c 5.4%. Unsure if she has any hypoglycemia on current regimen, but she should contact PCP if she does. Given her age, tight glycemic control is not recommended. She may want to discuss trial off Byetta and metformin monotherapy.
[2019-06-03] MEDS: SENNA 8.6 MG TAB PO SCH (20:49)
[2019-06-03] MEDS: PRESERVISION AREDS PO SCH (20:52)
[2019-06-03] MEDS: ATORVASTATIN 40 MG TAB PO SCH (20:52)
[2019-06-04] MEDS: KETOROLAC TROMETHAMINE 15 MG/ML VIAL IV SCH ×2 (01:27→08:07)
[2019-06-04] MEDS: LEVOTHYROXINE SODIUM 112 MCG TABLET PO SCH (05:48)
[2019-06-04] MEDS: ACETAMINOPHEN 500 MG TAB PO SCH (05:48)
[2019-06-04 06:22] LABS: Hematocrit (blood only) 27.9 % (37-47); Hemoglobin 9.5 g/dL (12.0-16.0); Mean Corpuscular Hemoglobin 29.4 pg (25-34); Mean Corpuscular Hgb Conc 34.1 g/dL (32-36); Mean Corpuscular Volume 86.4 fL (80-100); Mean Platelet Volume 8.4 fL (7.4-10.4); Platelet Count 190 K/uL (130-400); RDW Coefficient of Variation 14.2 % (11.5-14.5); RDW Standard Deviation 45.3 fL (36.4-46.3); Red Blood Count 3.23 M/uL (4.2-5.4); White Blood Count 5.52 K/uL (4.8-10.8)
[2019-06-04 06:32] VITALS: PULSE 67; O2SAT 98
[2019-06-04 06:48] LABS: BUN Creatinine Ratio 21.3 (10-20); Calcium 7.9 mg/dl (8.5-10.1); Est GFR (African American) 49.3; Est GFR (Non-African American) 42.6; Potassium 3.9 mmol/L (3.5-5.1)
[2019-06-04] MEDS: TRAMADOL HCL 50 MG TABLET PO PRN (07:21)
[2019-06-04] MEDS: DOCUSATE SODIUM 100 MG CAP PO SCH (07:22)
[2019-06-04] MEDS: FERROUS GLUCONATE 324 MG TAB PO SCH (07:22)
[2019-06-04] MEDS: PANTOprazole 40 MG TAB PO SCH (07:23)
[2019-06-04] MEDS: CHOLECALCIFEROL 1,000 UNITS TAB PO SCH (07:23)
[2019-06-04] MEDS: METFORMIN HCL 500 MG TAB PO SCH (07:23)
[2019-06-04] MEDS: MULTIVITAMIN TAB PO SCH (07:23)
[2019-06-04] MEDS: CYANOCOBALAMIN 500 MCG TABLET (VITAMIN B-12) PO SCH (07:24)
[2019-06-04] MEDS: ASCORBIC ACID 500 MG TAB PO SCH (07:24)
[2019-06-04] MEDS: PRESERVISION AREDS PO SCH (07:25)
[2019-06-04] MEDS: APIXABAN 2.5 MG TAB PO SCH (07:25)
[2019-06-04 07:28] VITALS: BP 143/76
[2019-06-04] MEDS: hydroCHLOROthiazide 25 MG TAB PO SCH (07:29)
[2019-06-04] MEDS: ATENOLOL 50 MG TABLET PO SCH (07:29)
[2019-06-04] MEDS: LISINOPRIL 40 MG TAB PO SCH (07:29)
--- NOTE | 2019-06-04 08:47 | Progress Note ---
DATE: 06/04/2019 SUBJECTIVE: A 78-year-old white female postop day 2 from a left knee replacement. She is doing okay. She has had a bit more pain in the past 24 hours, but it is very manageable. No chest pain or shortness of breath. Not feeling dizzy or lightheaded. OBJECTIVE: VITAL SIGNS: Temperature 36.6. Vital signs stable. GENERAL: Physical examination shows a pleasant elderly female. She is sitting up in her bedside chair, looks pretty comfortable. EXTREMITIES: Examination of the left leg reveals the dressing to be clean, dry and intact. She can dorsiflex and plantarflex her foot appropriately. Calf is soft and supple. She is neurologically intact. LABORATORY DATA: Hemoglobin 9.5, hematocrit 27.9. Electrolytes are stable. Creatinine is improved at 1.23. ASSESSMENT: A 78-year-old white female postop day 2 from a left knee replacement. She is doing pretty well. Pain is controlled. She is neurologically intact. Hemoglobin is stable. Creatinine is improved. PLAN: 1. DVT prophylaxis including thigh-high TEDs, SCDs, and she is back on her Eliquis. We will discharge her on a therapeutic dose. 2. PT/OT. Weight bear as tolerated. Left total knee protocol. 3. Pain control, doing well with current pain regimen. 4. Disposition: Plan to discharge to home with some home health later today.
[2019-06-04] MEDS: INSULIN ASPART 100 UNITS/ML 3 ML PEN SC SCH (10:04)
--- NOTE | 2019-06-06 22:07 | Discharge Summary ---
ADMITTING PHYSICIAN AND SURGEON: Dr. Sanjay Long ADMITTING DIAGNOSIS: Left knee degenerative joint disease. SURGERY PERFORMED: Left total knee arthroplasty. SECONDARY DIAGNOSES: Diabetes, macular degeneration, hypertension, gastroesophageal reflux disease, obesity. CONSULTS: None obtained. HISTORY AND PHYSICAL EXAMINATION: Well documented in the patient's chart. HOSPITAL COURSE: The patient was admitted on 06/02/2019, underwent total knee arthroplasty, tolerated the procedure well. There were no complications. She was transferred to the PACU postoperatively and later to the orthopedic floor for further care. She was given Ancef for antibiotic prophylaxis, JIGAR stockings, SCDs and aspirin for DVT prophylaxis. Hemoglobin, hematocrit and vital signs were monitored during her hospital stay and remained stable, did not require any blood transfusions. There were no complications. By postoperative day #2, she was tolerating a diabetic diet. Pain was controlled with oral pain medicine. She was participating in physical therapy. Postop day #2, she was discharged home, set up with home health services, given printed discharge instructions as well as new prescriptions for Tylenol, iron supplement and tramadol. Continue home medicines. Continue physical therapy, weightbearing as tolerated, JIGAR stockings. Follow up approximately 2 weeks postop or sooner if there are any problems or concerns.
== END 2019-06-04 10:54 | disposition home health service (06) | DRG 470 ==
LOC: ASU 07:44 → 3E 12:16

== ENCOUNTER 2022-05-26 16:52 | Inpatient (IN) ==
--- NOTE | 2022-05-26 17:12 | Emergency Department Note ---
Impression & Plan C. difficile colitis ADMIT ED Provider Note HPI: The patient is a 81-year-old female who presents emergency department with a chief complaint of diarrhea for the past 3 months. Patient states that she was in the midst of an outpatient work-up by gastroenterology, she had a stool culture performed which returned positive today for C. difficile gene as well as E. coli/Shiga toxin. Patient states that she has had some increased abdominal cramping with her bowel movements lately. On arrival here to the ED the patient is in no acute distress, she is hemodynamically stable, she is overall nontoxic- appearing on my initial assessment ROS: -GI: Diarrhea, abnormal outpatient lab testing *10 point review systems was conducted and is otherwise negative unless stated above *Outpatient medications and allergy history reviewed PE: General: Alert, NAD HEENT: Normocephalic, atraumatic Eyes: Extraocular eye movement is intact, no scleral erythema Pulmonary: Clear to auscultation bilaterally, no wheezing Cardio: Regular rate and rhythm GI: Abdomen is soft, mild tenderness diffusely to palpation without guarding or rigidity : No suprapubic tenderness MSK: No evidence of trauma or malformation of the extremities, no edema Skin: No evidence of rash Neuro: Alert, no focal deficits 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 She had positive C. difficile testing and E. coli/Shiga toxin testing today that was performed as an outpatient. Patient states that she does feel that her symptoms have been worsening recently and she feels overall weak. IV was established, lab work was obtained that shows evidence of worsening acute kidney injury to creatinine of 2.0 today, patient is also noted to be hypokalemic at 3.0 which was repleted orally. CT imaging was obtained that shows evidence of colitis and possible urothelial inflammation. Patient denies any dysuria, urinalysis is pending at the time of admission. Patient was IV fluid resuscitated in the ED, started on oral vancomycin for positive C. difficile testing. Patient tells me that she does feel that she needs to be admitted to the hospital for her symptoms, given her acute kidney injury in addition to C. difficile infection, hospitalist service was consulted for admission. Patient was in agreement to the above plan and she was admitted in stable condition to the [facility] hospitalist service. Diagnosis: 1. C. difficile infection/colitis 2. Diarrhea, acute on chronic 3. Abdominal pain, acute on chronic 4. Acute kidney injury 5. Hypokalemia Disposition: Admission Kunal Elias DO Emergency Medicine Past Med/Surg History Medical History Afib DX 15 YR AGO - NO EPISODE FOR 10 YR AGO SINCE CARDIZEM ADDED NO HX CARDIOVERSION Arthritis Diabetes Hiatal hernia History of hemorrhoids History of high cholesterol HTN (hypertension) Hypothyroid Left bundle branch block HAD FOR OVER 10 YRS/NO PROBLEMS WITH Loose stools LAST FEW MON/STOOL SAMPLE "FINE" - HAS WORSENED OVER THE LAST WEEK Macular degeneration Peptic ulcer disease HX Sciatica Vomiting REASON FOR UPCOMING PROCEDURE Surgical History History of appendectomy History of bilateral tubal ligation History of carpal tunnel release left History of cataract surgery BILATERAL History of cholecystectomy History of colonoscopy History of esophagogastroduodenoscopy (EGD) History of herniorrhaphy INCISIONAL History of left knee replacement History of tonsillectomy S/P foot surgery, left bone spur removal S/P right knee arthroscopy Family History Mother Family history of diabetes mellitus Social History Smoking Status: Never smoker Second Hand Exposure: No; Hx Alcohol Use: No Hx Substance Use: No Preferred Language: Uzbek Communication Ability: Effective 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 Beliefs That Will Affect Care: None marital status: Current Living Situation: Spouse Feels Safe at Home: Yes Assistive Devices: Glasses Allergies Allergies Allergy/AdvReac Type Severity Reaction Status Date / Time rivaroxaban [From Xarelto] AdvReac Unknown WAKE UP Verified 05/07/22 08:52 WITH A COUPLE MOUTH FULLS OF BLOOD Home Meds Home Medications Medication Instructions Recorded Confirmed atenolol 50 mg tablet 50 mg PO BID 02/17/19 05/07/22 diltiazem HCl 180 mg 180 mg PO BID 02/17/19 05/07/22 capsule,extended release 24 hr, controlled hydrochlorothiazide 12.5 mg capsule 12.5 mg PO QAM 02/17/19 05/07/22 multivitamin 1 tab PO QAM 02/17/19 05/07/22 cholecalciferol (vitamin D3) 25 1,000 unit PO DAILY 05/24/19 05/07/22 mcg (1,000 unit) capsule (Vitamin D3) cyanocobalamin (vitamin B-12) 1,000 mcg PO DAILY 05/24/19 05/07/22 1,000 mcg tablet (Vitamin B-12) vit C 250 mg-vit E 90 mg-zinc 40 1 tab PO BID 05/27/19 05/07/22 mg-copper 1 [id number] capsule (PreserVision AREDS-2) dulaglutide 0.75 mg/0.5 mL 0.75 mg subcut WK 05/23/20 05/07/22 subcutaneous pen injector (Trulicity) losartan 100 mg tablet (Cozaar) 100 mg PO QAM 11/27/20 05/07/22 acetaminophen 500 mg tablet 1,000 mg PO UD PRN Pain 01/16/21 05/07/22 (Tylenol Extra Strength) duloxetine 30 mg capsule,delayed 30 mg PO BID 06/03/21 05/07/22 release (Cymbalta) levothyroxine 88 mcg tablet 88 mcg PO QAM 05/05/22 05/07/22 Previous Rx's Medication Instructions Recorded atorvastatin 80 mg tablet 80 mg PO QPM #90 tabs 12/27/19 metformin 1,000 mg tablet 1,000 mg PO BID #180 tabs 09/10/20 apixaban 5 mg tablet (Eliquis) 5 mg PO BID #180 tabs 04/24/22 pantoprazole 40 mg tablet,delayed 40 mg PO BID 90 days #180 tabs 04/25/22 release ondansetron 4 mg disintegrating 4 mg PO Q8H PRN nausea and 05/07/22 tablet vomiting 0 days #30 tabs Results & Data (ED) Vital Signs Vital Signs - 24 hr 05/26/22 16:55 05/26/22 17:42 05/26/22 19:25 Temperature 36.2 C L Temperature Source Skin Pulse Rate 86 Pulse Rate [Apical] 61 61 Pulse Rhythm [Apical] Regular Regular Respiratory Rate 20 18 15 Respiratory Effort / Characteristics Non-Labored Non-Labored Respiratory Depth Normal Normal Normal Blood Pressure 132/69 Blood Pressure [Left Arm] 131/65 131/69 Blood Pressure Mean 90 Blood Pressure Mean [Left Arm] 87 89 Pulse Oximetry 98 96 99 Oxygen Delivery Method Room Air Room Air Room Air Sepsis Recent Fever Within 48 Hours No Sepsis New/Unexplained Change in Mental Status N/A Sepsis Action Taken by Nursing No Action Required Laboratory Data Result diagrams: 05/26/22 17:15 05/26/22 17:15 Lab Results 05/26/22 05/26/22 05/26/22 Range/Units 17:15 17:15 17:15 WBC 6.73 (4.8-10.8) K/ul RBC 4.02 (3.93-5.22) M/uL Hgb 11.8 L (12.0-16.0) g/dl Hct 33.8 L (34.1-44.9) % MCV 84.1 (80.0-100.0) fL MCH 29.4 (25.0-34.0) pg MCHC 34.9 (32.0-36.0) g/dL RDW Std Deviation 46.1 (36.4-46.3) fL RDW Coeff of Samantha 15.1 H (11.5-14.5) % Plt Count 372 (130-400) K/uL MPV 8.8 L (9.4-12.3) fL Immature Gran % (Auto) 0.6 % Neut % (Auto) 66.3 % Lymph % (Auto) 19.5 % Meriwether % (Auto) 12.3 % Eos % (Auto) 1.0 % Baso % (Auto) 0.3 % Neut # (Auto) 4.46 (1.4-6.5) K/uL Lymph # (Auto) 1.31 (1.2-3.4) K/uL Meriwether # (Auto) 0.83 H (0.24-0.82) K/uL Eos # (Auto) 0.07 (0-0.50) K/uL Baso # (Auto) 0.02 (0-0.2) K/uL Immature Gran # (Auto) 0.04 H (0.00-0.02) K/uL Sodium 133 L (136-145) mmol/L Potassium 3.0 L (3.5-5.1) mmol/L Chloride 101 (98-107) mmol/L Carbon Dioxide 20 L (21-32) mmol/L Anion Gap 12 H (3-11) BUN 30 H (6-23) mg/dl Creatinine 2.00 H D (0.6-1.2) mg/dl Est Cr Clr Drug Dosing 20.9 ml/min Est GFR ( Amer) 26.8 ml/min Est GFR (Non-Af Amer) 23.2 ml/min BUN/Creatinine Ratio 15.0 (10-20) Glucose 124 H (70-99(Fasting)) mg/dl Calcium 9.2 (8.5-10.1) mg/dl Magnesium 1.1 L (1.7-2.4) mg/dl Total Bilirubin 0.5 (0.2-1.0) mg/dl AST 21 (13-39) U/L ALT 24 (7-52) U/L Alkaline Phosphatase 95 (34-104) U/L Total Protein 6.9 (6.0-8.3) gm/dl Albumin 3.7 (3.4-5.0) gm/dl Globulin 3.2 (2.5-4.0) gm/dl Albumin/Globulin Ratio 1.2 (0.9-2) Administered Medications Discontinued Medications Sodium Chloride (Nss 1000ml) 1,000 mls @ 999 mls/hr IV .Q1H1M ONE Stop: 05/26/22 18:15 Last Infusion: 05/26/22 19:27 Dose: 0 mls/hr Documented By: Admin: 05/26/22 17:44 Dose: 999 mls/hr Documented By: IMAN Potassium Chloride (Potassium Chloride Crtab 20 Meq Tabcr) 40 meq PO NOW STA Stop: 05/26/22 18:51 Last Admin: 05/26/22 19:07 Dose: 40 meq Documented By: IMAN Raspberry (Raspberry Syrup 5 Ml Udp) 5 ml PO ONE STA Stop: 05/26/22 18:52 Last Admin: 05/26/22 19:08 Dose: 5 ml Documented By: IMAN Vancomycin HCl (Vancomycin Hcl 125 Mg/2.5ml Soln) 125 mg PO ONE STA Stop: 05/26/22 18:52 Last Admin: 05/26/22 19:08 Dose: 125 mg Documented By: KV Imaging Data Radiologist's Impression: Abdomen/Pelvis CT 05/26/22 18:[address] WITHOUT CONTRAST CT DOSE: 479.03 mGy.cm HISTORY: diarrhea, acute kidney injury TECHNIQUE: Multiaxial CT images of the abdomen and pelvis were performed without contrast. A dose lowering technique was utilized adhering to the principles of ALARA. COMPARISON STUDY: None. FINDINGS: A few subcentimeter nodules within the left lower lobe measure up to 3 mm. These are similar to the [address] and therefore likely benign. No pneumoperitoneum. No pneumatosis. No fractures within the visualized osseous structures. Prior cholecystectomy. The unenhanced liver, spleen, and adrenal glands unremarkable. Lobular exophytic hypodense lesion within the pancreatic body on image 75 which measures 2.0 x 1.2 cm. This favors a cystic lesion of the pancreas such as a side branch intraductal papillary mucinous neoplasm. This is incompletely characterized on this noncontrast study. A 4 mm left renal calcification appears to be vascular. No definite renal or ureteral calculi. A few bilateral renal hypodense lesions are incompletely characters on this noncontrast study but statistically represent cysts. Dominant right renal hypodense lesion measures 3.3 cm. There appears a mild urothelial thickening within the right renal collecting system in comparison to the left. This could represent a mild pyelitis. The bladder is unremarkable. The uterus and ovaries are within normal limits. No pelvic free fluid. Suboptimal evaluation for bowel pathology due to the lack of intravenous and oral contrast. However, no evidence for bowel obstruction. The appendix is reportedly surgically absent. There appears a mild thickening of the descending colon and rectum consistent with a nonspecific mild proctocolitis. This favors an infectious or inflammatory process. IMPRESSION: 1. Mild thickening of the descending colon and rectum consistent with a nonspecific mild proctocolitis. This favors an infectious or inflammatory process. 2. No evidence for bowel obstruction. 3. There may be mild urothelial thickening within the right renal collecting system. Recommend correlation with urinalysis to exclude a pyelitis/pyelonephr itis. 4. No renal or ureteral stones. No hydronephrosis. 5. Prior cholecystectomy. 6. A 2.0 x 1.2 cm lobular hypodense lesion within the pancreas body. This favors a cystic lesion of the pancreas such as a side branch intraductal papillary mucinous neoplasm. Consider one year abdominal MRI follow-up to ensure stability. ACT 112: Positive. There are findings on this exam that require communication between the performing entity and the patient following Patient Test Result Information Act ([place] Act 112) guidelines. Electronically signed by: William Swain M.D. 05/26/2022 6:32 PM Discharge Plan Visit Data Chief Complaint: Dehydration Stated Complaint: REF BY DR DEHYDRATION, ECOLI ED Provider: Kunal Elias Discharge Problem: C. difficile colitis Patient Disposition: Admitted As Inpatient Forms Stand Alone Forms: [facility] Prescriptions Prescriptions: No Action atorvastatin 80 mg tablet 80 mg PO QPM Qty: 90 3RF metformin 1,000 mg tablet 1,000 mg PO BID Qty: 180 1RF Eliquis 5 mg tablet 5 mg PO BID Qty: 180 3RF duloxetine [Cymbalta] 30 mg capsule,delayed release(DR/EC) 30 mg PO BID pantoprazole 40 mg tablet,delayed release (DR/EC) 40 mg PO BID 90 Days Qty: 180 3RF Trulicity 0.75 mg/0.5 mL pen injector 0.75 mg subcut WK Label Comments: [facility] Rx Instructions: 0.75 mg subcut weekly losartan [Cozaar] 100 mg tablet 100 mg PO QAM diltiazem HCl 180 mg Capsule,Ext.Rel 24h Degradable 180 mg PO BID atenolol 50 mg Tablet 50 mg PO BID multivitamin Tablet 1 tab PO QAM hydrochlorothiazide 12.5 mg Capsule 12.5 mg PO QAM cyanocobalamin (vitamin B-12) [Vitamin B-12] 1,000 mcg Tablet 1,000 mcg PO DAILY cholecalciferol (vitamin D3) [Vitamin D3] 1,000 unit Capsule 1,000 unit PO DAILY PreserVision AREDS-2 [id number] pe-lxib-ev-mg capsule 1 tab PO BID levothyroxine 88 mcg tablet 88 mcg PO QAM ondansetron 4 mg tablet,disintegrating 4 mg PO Q8H PRN (Reason: nausea and vomiting) Qty: 30 0RF acetaminophen [Tylenol Extra Strength] 500 mg Tablet 1,000 mg PO UD PRN (Reason: Pain) Referrals Referrals: Ham Baldwin [Primary Care Provider] -
[2022-05-26] MEDS ORDERED: SODIUM CHLORIDE 0.9% 1000ML 1,000 ML IV ONE (17:15)
[2022-05-26 17:34] LABS: Basophils # (auto) 0.02 K/uL (0-0.2); Basophils % (auto) 0.3 %; Eosinophils # (auto) 0.07 K/uL (0-0.50); Hematocrit (blood only) 33.8 % (34.1-44.9); Hemoglobin 11.8 g/dl (12.0-16.0); Immature Granulocytes # (auto) 0.04 K/uL (0.00-0.02); Immature Granulocytes % (auto) 0.6 %; Lymphocytes # (auto) 1.31 K/uL (1.2-3.4); Lymphocytes % (auto) 19.5 %; Mean Corpuscular Hemoglobin 29.4 pg (25.0-34.0); Mean Corpuscular Hgb Conc 34.9 g/dL (32.0-36.0); Mean Corpuscular Volume 84.1 fL (80.0-100.0); Mean Platelet Volume 8.8 fL (9.4-12.3); Monocytes # (auto) 0.83 K/uL (0.24-0.82); Monocytes % (auto) 12.3 %; Neutrophils # (auto) 4.46 K/uL (1.4-6.5); Neutrophils % (auto) 66.3 %; Platelet Count 372 K/uL (130-400); RDW Coefficient of Variation 15.1 % (11.5-14.5); RDW Standard Deviation 46.1 fL (36.4-46.3); Red Blood Count 4.02 M/uL (3.93-5.22); White Blood Count 6.73 K/ul (4.8-10.8)
[2022-05-26 17:58] LABS: Albumin Globulin Ratio 1.2 (0.9-2); Albumin Level 3.7 gm/dl (3.4-5.0); Bilirubin,Total 0.5 mg/dl (0.2-1.0); Calcium 9.2 mg/dl (8.5-10.1); Creatinine Clr Calc Pharmacy 20.9 ml/min; Est GFR (African American) 26.8 ml/min; Est GFR (Non-African American) 23.2 ml/min; Globulin 3.2 gm/dl (2.5-4.0); Total Protein 6.9 gm/dl (6.0-8.3)
--- NOTE | 2022-05-26 18:34 | CT Scan Report ---
ABDOMEN AND PELVIS CT WITHOUT CONTRAST CT DOSE: 479.03 mGy.cm HISTORY: diarrhea, acute kidney injury TECHNIQUE: Multiaxial CT images of the abdomen and pelvis were performed without contrast. A dose lo wering technique was utilized adhering to the principles of ALARA. COMPARISON STUDY: None. FINDINGS: A few subcentimeter nodules within the left lower lobe measure up to 3 mm. These are simila r to the [address] and therefore likely benign. No pneumoperitoneum. No pneumatosis. No fractures within the visualized osseous structures. Prior cholecystectomy. The unenhanced liver, spleen, and a drenal glands unremarkable. Lobular exophytic hypodense lesion within the pancreatic body on image 75 which measures 2.0 x 1.2 cm. This favors a cystic lesion of the pancreas such as a side branch intra ductal papillary mucinous neoplasm. This is incompletely characterized on this noncontrast study. A 4 mm left renal calcification appears to be vascular. No definite renal or ureteral calculi. A few ligia ateral renal hypodense lesions are incompletely characters on this noncontrast study but statisticall y represent cysts. Dominant right renal hypodense lesion measures 3.3 cm. There appears a mild urothe lial thickening within the right renal collecting system in comparison to the left. This could repres ent a mild pyelitis. The bladder is unremarkable. The uterus and ovaries are within normal limits. No pelvic free fluid. Suboptimal evaluation for bowel pathology due to the lack of intravenous and oral contrast. However, no evidence for bowel obstruction. The appendix is reportedly surgically absent. There appears a mild thickening of the descending colon and rectum consistent with a nonspecific mild proctocolitis. This favors an infectious or inflammatory process. IMPRESSION: 1. Mild thickening of the descending colon and rectum consistent with a nonspecific mild proctocoliti s. This favors an infectious or inflammatory process. 2. No evidence for bowel obstruction. 3. There may be mild urothelial thickening within the right renal collecting system. Recommend correl ation with urinalysis to exclude a pyelitis/pyelonephritis. 4. No renal or ureteral stones. No hydronephrosis. 5. Prior cholecystectomy. 6. A 2.0 x 1.2 cm lobular hypodense lesion within the pancreas body. This favors a cystic lesion of t he pancreas such as a side branch intraductal papillary mucinous neoplasm. Consider one year abdomina l MRI follow-up to ensure stability. ACT 112: Positive. There are findings on this exam that require communication between the performing entity and the patient following Patient Test Result Information Act ([place] Act 112) guidelines. Electronically signed by: William Swain M.D. 05/26/2022 6:32 PM
[2022-05-26] MEDS ORDERED: POTASSIUM CHLORIDE CRTAB 20 MEQ TABCR PO STA (18:50)
[2022-05-26] MEDS ORDERED: VANCOMYCIN HCL 125 MG/2.5ML SOLN PO STA (18:51)
[2022-05-26] MEDS ORDERED: RASPBERRY SYRUP 5 ML UDP PO STA (18:51)
--- NOTE | 2022-05-26 19:53 | History & Physical Report ---
Date of Service May 26, 2022 Assessment & Plan (1) C. difficile colitis: Plan: 81yo female with a history of T2DM, atrial fibrillation (on eliquis), HTN, HLD, hypothyroidism, and GERD presents with a three-month history of diarrhea, nausea, and vomiting, which as acutely worsened over the past 2-3 weeks. Patient was found to be positive for C. diff and Shiga-toxin E. coli on stool PCR upon admission. Diarrhea and nausea secondary to C. diff colitis and Shiga-toxin E. coli Patient with a three-month history of nausea and diarrhea with acute worsening over the past 2-3 weeks On admission, vitals stable; labs notable for hypokalemia, hypomagnesemia, and JOSR; no leukocytosis CT abdomen/pelvis: mild thickening of descending colon and rectum c/w mild protocolitis; no evidence of obstruction; mild urothelial thickening of right collecting system; no hydronephrosis Admission testing notable for positive C. diff gene and toxin, as well as Shiga-toxin E. coli Continue oral vancomycin 125mg qid No antibiotic intervention indicated for Shiga-toxin E. coli Hypokalemia Potassium 3.0 on admission KCl 40mEq PO (x1) given in ED KCl riders 10mEq q1h (x4 bags) ordered Repeat BMP in AM JOSR Creatinine on admission 2.0 (baseline 1.1 - 1.2) Suspected pre-renal etiology given diarrhea and poor PO intake Holding home losartan and HCTZ IVF: LR @ 100mL/hr (x1 bag ordered) Trend daily BMP, avoid nephrotoxins, encourage PO fluid intake Hypomagnesemia Magnesium 1.1 on admission Magnesium sulfate 1g IV (x3 bags) ordered Repeat serum magnesium in AM DM2 HbA1c 5.3% (October 2020), repeat Patient's home regimen held on admission Continue BSG checks, sliding-scale insulin, hypoglycemic protocol Hypertension BP well-controlled on admission (130s/60s) Continue home diltiazem, atenolol As noted above, holding home losartan and HCTZ pending improvement in creatinine Hypodense lesion of pancreatic body Incidental finding on CT abdomen/pelvis of 2.0 x 1.2cm lobular hypodense lesion within pancreatic body facoring a cystic lesion of pancreas e.g. side branch intraductal papillary mucinous neoplasm Per radiology, consider one-year follow-up MRI to ensure stability Outpatient follow-up recommended Atrial fibrillation: NSR on admission; continue home eliquis, diltiazem, atenolol GERD: continue home protonix HLD: continue home atorvastatin Hypothyroidism: continue home levothyroxine FEN: heart-healthy, DM2 diet; LR @ 100mL/hr (x1 bag ordered) Code status: full code DVT ppx: home eliquis Isolation: contact PT/OT: ordered Dispo: med/surg (2) Diabetes type 2, controlled: (3) Hypertension: (4) Dyslipidemia: (5) Hypothyroidism: (6) Nausea and vomiting: (7) Paroxysmal atrial fibrillation: History of Present Illness Primary Care Provider: Ham Baldwin 81yo female with a history of T2DM, atrial fibrillation (on eliquis), HTN, HLD, hypothyroidism, and GERD presents with a three-month history of diarrhea, nausea, and vomiting, which as acutely worsened over the past 2-3 weeks. Patient initially was experiencing about one loose stool per day until 2-3 weeks ago when she began having 3-5 loose bowel movements each day. BMs are not oily, dark/tarry, nor bloody. Symptoms have been associated with mild abdominal cramping this past week but have not been associated with abdominal pain otherwise. Patient also endorses poor PO intake and some mild lightheadedness upon standing. Patient was recently hospitalized at [facility] for the nausea/diarrhea; workup was unrevealing and at that time patient tested negative for C. diff (per patient). Patient denies fever, CP, SOB, and urinary symptoms. No recent travel. Upon arrival, vitals were stable; no elevated BP, no tachycardia, no tachypnea, spO2 adequate on room air. Initial labs were notable for mild hypokalemia (3.0), hypomagnesemia (1.1), and elevated creatinine (2.0, baseline 1.1 - 1.2). In the ED, stool culture was positive for C. diff gene PCR, C. diff toxin, and E. coli (Shinga) toxin PCR. Covid testing was negative, as was other stool culture testing. EKG: NSR with widened QRS with occasional PVCs. Surrogate decision-maker in case of an emergency: daughter Kasey Bailey (cell: [phone]) or son Sherif Hoang (cell: [phone]) Allergies Allergy/AdvReac Type Severity Reaction Status Date / Time rivaroxaban [From Xarelto] AdvReac Unknown WAKE UP Verified 05/26/22 20:41 WITH A COUPLE MOUTH FULLS OF BLOOD Home Medications Medication Instructions Recorded Confirmed Type atenolol 50 mg tablet 50 mg PO BID 02/17/19 05/26/22 History diltiazem HCl 180 mg 180 mg PO BID 02/17/19 05/26/22 History capsule,extended release 24 hr, controlled hydrochlorothiazide 12.5 mg capsule 12.5 mg PO QAM 02/17/19 05/26/22 History multivitamin 1 tab PO QAM 02/17/19 05/26/22 History cholecalciferol (vitamin D3) 25 1,000 unit PO DAILY 05/24/19 05/26/22 History mcg (1,000 unit) capsule (Vitamin D3) cyanocobalamin (vitamin B-12) 1,000 mcg PO DAILY 05/24/19 05/26/22 History 1,000 mcg tablet (Vitamin B-12) vit C 250 mg-vit E 90 mg-zinc 40 1 tab PO BID 05/27/19 05/26/22 History mg-copper 1 [id number] capsule (PreserVision AREDS-2) atorvastatin 80 mg tablet 80 mg PO QPM #90 tabs 12/27/19 05/26/22 Rx dulaglutide 0.75 mg/0.5 mL 0.75 mg subcut .ON HOLD 05/23/20 05/26/22 History subcutaneous pen injector (Trulicity) metformin 1,000 mg tablet 1,000 mg PO BID #180 tabs 09/10/20 05/26/22 Rx losartan 100 mg tablet (Cozaar) 100 mg PO QAM 11/27/20 05/26/22 History acetaminophen 500 mg tablet 1,000 mg PO UD PRN Pain 01/16/21 05/26/22 History (Tylenol Extra Strength) duloxetine 30 mg capsule,delayed 30 mg PO BID 06/03/21 05/26/22 History release (Cymbalta) apixaban 5 mg tablet (Eliquis) 5 mg PO BID #180 tabs 04/24/22 05/26/22 Rx levothyroxine 88 mcg tablet 88 mcg PO QAM 05/05/22 05/26/22 History ondansetron 4 mg disintegrating 4 mg PO Q8H PRN nausea and 05/07/22 05/26/22 Rx tablet vomiting 0 days #30 tabs pantoprazole 40 mg tablet,delayed 40 mg PO DAILY 05/26/22 05/26/22 History release Past Med/Surg History Medical History Afib DX 15 YR AGO - NO EPISODE FOR 10 YR AGO SINCE CARDIZEM ADDED NO HX CARDIOVERSION Arthritis Diabetes Hiatal hernia History of hemorrhoids History of high cholesterol HTN (hypertension) Hypothyroid Left bundle branch block HAD FOR OVER 10 YRS/NO PROBLEMS WITH Loose stools LAST FEW MON/STOOL SAMPLE "FINE" - HAS WORSENED OVER THE LAST WEEK Macular degeneration Peptic ulcer disease HX Sciatica Vomiting REASON FOR UPCOMING PROCEDURE Surgical History History of appendectomy History of bilateral tubal ligation History of carpal tunnel release left History of cataract surgery BILATERAL History of cholecystectomy History of colonoscopy History of esophagogastroduodenoscopy (EGD) History of herniorrhaphy INCISIONAL History of left knee replacement History of tonsillectomy S/P foot surgery, left bone spur removal S/P right knee arthroscopy Family History Mother Family history of diabetes mellitus Social History Smoking Status: Never smoker Second Hand Exposure: No; Do You Dip or Chew Tobacco: No; Tobacco Cessation Education Requested by Patient: No Hx Alcohol Use: No Hx Substance Use: No Preferred Language: Macedonian Communication Ability: Effective Communication Assistant Required: No Beliefs That Will Affect Care: None marital status: Current Living Situation: Spouse Other Information That Helps Us Care for You: No Feels Safe at Home: Yes Safety Concerns: Feels Safe At This Time Assistive Devices: None Physical Exam Physical Exam: Constitutional: well-appearing, no acute distress HEENT: NCAT, no conjunctival injection CV: regular rhythm, no murmur appreciated, extremities well-perfused, no LE edema Resp: CTABL, no wheezes/rales/rhonchi appreciated, no increased work of breathing GI: soft, nondistended, mild epigastric tenderness, nontender elsewhere, BS normoactive MSK: no gross deformities appreciated Skin: warm, dry, no rash appreciated Neuro: alert, oriented, no focal neurologic deficit appreciated Results & Data Results & Data ([facility]) Vital Signs (Past 12 Hours) Vital Signs Temp Pulse Pulse Resp BP BP Pulse Ox 05/26/22 19:25 61 15 131/69 99 05/26/22 17:42 61 18 131/65 96 05/26/22 16:55 36.2 C L 86 20 132/69 98 O2 Del Method 05/26/22 19:25 Room Air 05/26/22 17:42 Room Air 05/26/22 16:55 Room Air Supervising Physician Co-Signing Physician Notes Attending addendum: I have physically seen this patient, have supervised the medical residents activities, and agree with the H&P unless as otherwise noted. Assessment and Plan: C. difficile colitis/Shiga toxin E. coli infection/diarrhea and nausea- Vancomycin 125 mg p.o. 4 times daily Optimization of electrolytes: Low potassium, low magnesium and dehydration C. difficile precautions Acute kidney injury/electrolyte abnormalities- Hold home losartan and HCTZ Creatinine 2.00, with baseline 1.2 Potassium 3.0 Magnesium 1.1 Patient is status post normal saline 1 L from the ED, potassium chloride 40 mEq p.o. Give magnesium sulfate 3 g IV, and potassium chloride riders 10 mEq IV x4 LR at 100 mils per hour x1 L Repeat laboratories in a.m. Diabetes mellitus- Placed on Accu-Cheks with sliding scale coverage Remaining orders and notations as noted Resident Activity Tracking Resident Involvement: Resident Care Provided and Quick Service Technician Coverage Note Care Provided: Adult Hospital Medicine
[2022-05-26] MEDS: POTASSIUM CHLORIDE / WTR 10 MEQ/100 ML PLCT IV SCH ×2 (21:38→23:39)
[2022-05-26] MEDS: MAGNESIUM SULFATE / D5W 1 GM/100 ML BAG IV SCH ×2 (21:38→23:39)
[2022-05-26] MEDS ORDERED: dilTIAZem ER 180 MG CAPCR PO ONE (22:00)
[2022-05-26] MEDS ORDERED: DULoxetine HCL 30 MG CAP PO ONE (22:00)
[2022-05-26] MEDS ORDERED: ATENOLOL 50 MG TABLET PO ONE (22:00)
[2022-05-26] MEDS ORDERED: APIXABAN 5 MG TABLET PO ONE (22:00)
[2022-05-26 22:02] LABS: Appearance Urine Clear (Clear); Bacteria Urine Automated Negative (Negative); Bilirubin Urine Negative (Negative); Blood Urine Negative (Negative); Color Urine Dark Yellow; Epithelial Cell Urine Auto >30 /lpf (0-5); Glucose Urine UA Negative (Negative); Ketones Urine Negative (Negative); Leukocyte Esterase Urine 1+ (Negative); Nitrite Urine Negative (Negative); Protein Urine Negative (Negative); Urobilinogen Urine Negative (Negative)
[2022-05-26 22:14] LABS: RBC Urine Automated 0-4 /hpf (0-4)
[2022-05-27] MEDS ORDERED: ACETAMINOPHEN 325 MG TAB PO PRN (00:26)
[2022-05-27] MEDS ORDERED: CARBOHYDRATES FOR HYPOGLYCEMIA PO PRN (00:26)
[2022-05-27] MEDS ORDERED: ONDANSETRON INJ 2 MG/ML 2 ML VIAL IV PRN (00:26)
[2022-05-27] MEDS ORDERED: GLUCOSE 10 TAB/TUBE PO PRN (00:26)
[2022-05-27] MEDS ORDERED: GLUCAGON FOR INJ 1 MG VIAL SQ PRN (00:26)
[2022-05-27] MEDS ORDERED: DEXTROSE 50% 50 ML SYRINGE IV PRN (00:26)
[2022-05-27] MEDS ORDERED: LACTATED RINGER'S 1,000 ML IV SCH (00:26)
[2022-05-27] MEDS ORDERED: MELATONIN 3 MG TAB PO PRN (00:26)
[2022-05-27] MEDS ORDERED: GLUCOSE 40% GEL 15 GM TUBE PO PRN (00:26)
[2022-05-27] MEDS: POTASSIUM CHLORIDE / WTR 10 MEQ/100 ML PLCT IV SCH ×2 (00:51→02:15)
[2022-05-27] MEDS: INSULIN ASPART PER UNIT SC SCH ×5 (01:18→21:24)
[2022-05-27] MEDS: VANCOMYCIN HCL 125 MG/2.5ML SOLN PO SCH ×4 (02:03→17:59)
[2022-05-27] MEDS: RASPBERRY SYRUP 5 ML UDP PO SCH ×4 (02:03→17:59)
[2022-05-27] MEDS: MAGNESIUM SULFATE / D5W 1 GM/100 ML BAG IV SCH (02:10)
[2022-05-27] MEDS: LEVOTHYROXINE SODIUM 88 MCG TABLET PO SCH (05:59)
[2022-05-27 07:42] LABS: Basophils # (auto) 0.02 K/uL (0-0.2); Basophils % (auto) 0.4 %; Eosinophils # (auto) 0.08 K/uL (0-0.50); Eosinophils % (auto) 1.8 %; Hematocrit (blood only) 32.6 % (34.1-44.9); Immature Granulocytes # (auto) 0.04 K/uL (0.00-0.02); Immature Granulocytes % (auto) 0.9 %; Lymphocytes # (auto) 0.88 K/uL (1.2-3.4); Lymphocytes % (auto) 19.6 %; Mean Corpuscular Hemoglobin 29.1 pg (25.0-34.0); Mean Corpuscular Hgb Conc 33.7 g/dL (32.0-36.0); Mean Corpuscular Volume 86.2 fL (80.0-100.0); Mean Platelet Volume 8.6 fL (9.4-12.3); Monocytes # (auto) 0.63 K/uL (0.24-0.82); Neutrophils # (auto) 2.85 K/uL (1.4-6.5); Neutrophils % (auto) 63.3 %; Platelet Count 312 K/uL (130-400); RDW Coefficient of Variation 15.1 % (11.5-14.5); RDW Standard Deviation 47.5 fL (36.4-46.3); Red Blood Count 3.78 M/uL (3.93-5.22)
--- NOTE | 2022-05-27 07:58 | Hospitalist Progress Note ---
Date of Service May 27, 2022 Assessment & Plan (1) C. difficile colitis: Plan: 81yo female with a history of T2DM, atrial fibrillation (on eliquis), HTN, HLD, hypothyroidism, and GERD presents with a three-month history of diarrhea, nausea, and vomiting, which as acutely worsened over the past 2-3 weeks. Patient was found to be positive for C. diff and Shiga-toxin E. coli on stool PCR upon admission. Also with hypoK, hypoMag, JOSR w/ Cr 2.0 (baseline 1.1-1.2) Of note, recent EGD w/ GI in April with Dr Aguero for ongoing n/v (nonerosive gastritis along with small hiatal hernia noted) Reported 1x/daily diarrhea/loose stool then Also, recently had PPI increased to protonix 40mg PO BID * ??PPI induced cdiff given denied recent abx/ill contacts, ?contaminent w/ endoscopy equipment C. diff colitis and Shiga-toxin E. coli with associated n/v/diarrhea 2-3 months reported, 1x/daily increased to 5x/daily over the past weekend PCR stool + for cdiff gene/toxin as well as shiga toxin e.coli CT abdomen/pelvis: mild thickening of descending colon and rectum c/w mild protocolitis; no evidence of obstruction; mild urothelial thickening of right collecting system; no hydronephrosis Continue PO vancomycin QID. No antibiotic intervention indicated for Shiga-toxin E. coli Avoid Imodium/GI slowing agents Diarrhea slowed, improvement in PO appetite. Cr improving. 2.0 on admit (BUN 30, pre-renal) to 1.3 Ordered 2L IVF with LR +20meq @ 80cc/hr and encouraged PO. Mag 1.1 on admit, likely 2nd to diarrheal losses/PPI use. IV replacement ordered (additional 1GM this morning) Repeat wnl PT/OT consulted Continue supportive care/IV fluids/electrolyte replacement/antiemetics prn GERD: recent ongoing n/v, underwent EGD in April as outlined, no acute abn continue home protonix, mag replacement as above given recent increase to BID per GI for n/v, cannot r/o as cause ?continued use vs switching to another agent vs predatory animal exterminator prevention/testing for cure? Hypokalemia/Hypomagnesemia K 3.0 on admit, 40meq PO x 1 provided. Mag 1.1 and 3gm IV ordered on admit, additional 1gm IV for today Also of note on HCTZ (on hold) Repeat K 3.4, Mag wnl -- K added to IVF as above BMP in AM JOSR pre-renal w/ elevated BUN/Cr on admit suspected 2nd to diarrhea losses, bicarb low (less diarrhea, consider adding bicarb if needed to IVF) Cr 2.0 on admit (baseline 1.1-1.2) IVF provided, extended to 2L with K -- Cr improved to 1.3 and will avoid nephrotoxic agents/renal dose meds when able Continue to hold losartan/HCTZ, BP stable Encouraged PO intake -- states first meal this morning able to tolerate in several days Monitor BMP in AM Hypomagnesemia As above, monitor in AM DM2 HbA1c 5.3% (October 2020), on dulaglutide weekly, metformin 1gm BID ISS while inpatient, BSGs acceptable Monitor Hypertension Well controlled, typically on HCTZ, losartan, diltrazem, atenolol BP controlled currently and holding HCTZ/losartan for JOSR as above Monitor labs in AM/resume when stable/keeping up with PO intake, but suspect holding for ~additional 2 days while hydrating Hypodense lesion of pancreatic body Incidental finding on CT abdomen/pelvis of 2.0 x 1.2cm lobular hypodense lesion within pancreatic body facoring a cystic lesion of pancreas e.g. side branch intraductal papillary mucinous neoplasm Per radiology, consider one-year follow-up MRI to ensure stability Outpatient follow-up recommended Hypothyroidism Hx of, recent TSH earlier this year wnl. Continues on synthroid 88mcg daily and will repeat labs in am given hyponatremia but suspect related to dehydration from above Atrial fibrillation: History of such, paroxysmal NSR on examination, continues on Eliquis, diltiazem, atenolol HLD Continue atorvastatin (2) Diabetes type 2, controlled: (3) Hypertension: (4) Dyslipidemia: (5) Hypothyroidism: (6) Nausea and vomiting: (7) Paroxysmal atrial fibrillation: Plan continued inpatient stay, supportive care/electrolyte replacement PT/OT consulted Admission and Anticipated Discharge Date Admission Date: May 26, 2022 Supervising Physician Co-Signing Physician Notes Attending Attestation - Chart reviewed, care plan d/w NANCI [place]. I agree w/ the burgess components of her documentation. Mehdi Leon MD Subjective Patient evaluated this morning. Doing much better than admission. Admits was having some diarrhea when had her EGD but only about 1-2/day. After EGD worsening diarrhea up to 5x/daily over the weakened with abdominal cramping.Discussed stool studies and antibiotics. She states she is feeling much better than when she came in. NO further diarrhea. 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 Discussed will order phenergan if any nausea as needed. She denies any recent antibiotic use or recent sick contacts. Of note, recent GI appointment 04/25 prior to her EGD she had her protonix increased to 40mg BID. Will continue to provide supportive care with IVF and electrolyte replacement and monitor her course and anticipate discharge in next 2-3 days if continued improvement. Review of Systems Review of Systems: All systems reviewed & are unremarkable except as noted in HPI & below Physical Exam Physical Exam: General: WD/WN female sitting up in bed watching TV, NAD, general pallor HEENT: normocephalic, atraumatic, mm slightly dry, trachea midline without deviation Resp: CTAB, no w/c/r, 99% on RA CV: RRR, no m/r/g, no calf tenderness, pulses palpable GI: +BS throughout, minimal epigastric discomfort, soft, no guarding/rigidity : no sosa MSK/Neuro: moves all extremities, no focal deficits Psych: AOx3, pleasant and cooperative Skin: warm, dry, no obvious lesions Results & Data Results & Data ([facility]) Vital Signs (Past 12 Hours) Vital Signs Temp Pulse Pulse Resp BP BP Pulse Ox 05/27/22 02:18 36.5 C 62 16 129/79 99 05/27/22 00:00 63 20 136/63 99 05/26/22 22:03 62 22 149/63 H 98 O2 Del Method 05/27/22 02:18 Room Air 05/27/22 00:00 Room Air 05/26/22 22:03 Room Air Laboratory Results 05/27/22 05/27/22 05/27/22 Range/Units 08:14 07:08 07:08 WBC 4.50 L (4.8-10.8) K/ul RBC 3.78 L (3.93-5.22) M/uL Hgb 11.0 L (12.0-16.0) g/dl Hct 32.6 L (34.1-44.9) % MCV 86.2 (80.0-100.0) fL MCH 29.1 (25.0-34.0) pg MCHC 33.7 (32.0-36.0) g/dL RDW Std Deviation 47.5 H (36.4-46.3) fL RDW Coeff of Samantha 15.1 H (11.5-14.5) % Plt Count 312 (130-400) K/uL MPV 8.6 L (9.4-12.3) fL Immature Gran % (Auto) 0.9 % Neut % (Auto) 63.3 % Lymph % (Auto) 19.6 % Morris % (Auto) 14.0 % Eos % (Auto) 1.8 % Baso % (Auto) 0.4 % Neut # (Auto) 2.85 (1.4-6.5) K/uL Lymph # (Auto) 0.88 L (1.2-3.4) K/uL Morris # (Auto) 0.63 (0.24-0.82) K/uL Eos # (Auto) 0.08 (0-0.50) K/uL Baso # (Auto) 0.02 (0-0.2) K/uL Immature Gran # (Auto) 0.04 H (0.00-0.02) K/uL Sodium 134 L (136-145) mmol/L Potassium 3.2 L (3.5-5.1) mmol/L Chloride 106 (98-107) mmol/L Carbon Dioxide 17 L (21-32) mmol/L Anion Gap 11 (3-11) BUN 23 (6-23) mg/dl Creatinine 1.30 H D (0.6-1.2) mg/dl Est Cr Clr Drug Dosing 32.1 ml/min Est GFR ( Amer) 45.2 ml/min Est GFR (Non-Af Amer) 39.0 ml/min BUN/Creatinine Ratio 17.7 (10-20) Glucose 118 H (70-99(Fasting)) mg/dl POC Glucose 132 H (70-99) mg/dl Calcium 8.7 (8.5-10.1) mg/dl Phosphorus 3.1 (2.5-4.9) mg/dl Magnesium 1.9 (1.7-2.4) mg/dl Total Bilirubin (0.2-1.0) mg/dl AST (13-39) U/L ALT (7-52) U/L Alkaline Phosphatase (34-104) U/L Total Protein (6.0-8.3) gm/dl Albumin (3.4-5.0) gm/dl Globulin (2.5-4.0) gm/dl Albumin/Globulin Ratio (0.9-2) Urine Color Urine Appearance (Clear) Urine pH (4.5-7.5) Ur Specific Moorcroft (1.000-1.030) Urine Protein (Negative) Urine Glucose (UA) (Negative) Urine Ketones (Negative) Urine Blood (Negative) Urine Nitrite (Negative) Urine Bilirubin (Negative) Urine Urobilinogen (Negative) Ur Leukocyte Esterase (Negative) Urine WBC (Auto) (0-5) /hpf Urine RBC (Auto) (0-4) /hpf U Hyaline Cast (Auto) (0-5) /lpf U Epithel Cells (Auto) (0-5) /lpf Urine Bacteria (Auto) (Negative) Ur Renal Epithelial Cell SARS-CoV-2, RNA, NAAT (NEGATIVE) 05/27/22 05/26/22 05/26/22 Range/Units 00:56 21:40 21:31 WBC (4.8-10.8) K/ul RBC (3.93-5.22) M/uL Hgb (12.0-16.0) g/dl Hct (34.1-44.9) % MCV (80.0-100.0) fL MCH (25.0-34.0) pg MCHC (32.0-36.0) g/dL RDW Std Deviation (36.4-46.3) fL RDW Coeff of Samantha (11.5-14.5) % Plt Count (130-400) K/uL MPV (9.4-12.3) fL Immature Gran % (Auto) % Neut % (Auto) % Lymph % (Auto) % Morris % (Auto) % Eos % (Auto) % Baso % (Auto) % Neut # (Auto) (1.4-6.5) K/uL Lymph # (Auto) (1.2-3.4) K/uL Morris # (Auto) (0.24-0.82) K/uL Eos # (Auto) (0-0.50) K/uL Baso # (Auto) (0-0.2) K/uL Immature Gran # (Auto) (0.00-0.02) K/uL Sodium (136-145) mmol/L Potassium (3.5-5.1) mmol/L Chloride (98-107) mmol/L Carbon Dioxide (21-32) mmol/L Anion Gap (3-11) BUN (6-23) mg/dl Creatinine (0.6-1.2) mg/dl Est Cr Clr Drug Dosing ml/min Est GFR ( Amer) ml/min Est GFR (Non-Af Amer) ml/min BUN/Creatinine Ratio (10-20) Glucose (70-99(Fasting)) mg/dl POC Glucose 119 H (70-99) mg/dl Calcium (8.5-10.1) mg/dl Phosphorus (2.5-4.9) mg/dl Magnesium (1.7-2.4) mg/dl Total Bilirubin (0.2-1.0) mg/dl AST (13-39) U/L ALT (7-52) U/L Alkaline Phosphatase (34-104) U/L Total Protein (6.0-8.3) gm/dl Albumin (3.4-5.0) gm/dl Globulin (2.5-4.0) gm/dl Albumin/Globulin Ratio (0.9-2) Urine Color Dark Yellow Urine Appearance Clear (Clear) Urine pH 5.0 (4.5-7.5) Ur Specific [place] 1.010 (1.000-1.030) Urine Protein Negative (Negative) Urine Glucose (UA) Negative (Negative) Urine Ketones Negative (Negative) Urine Blood Negative (Negative) Urine Nitrite Negative (Negative) Urine Bilirubin Negative (Negative) Urine Urobilinogen Negative (Negative) Ur Leukocyte Esterase 1+ H (Negative) Urine WBC (Auto) 5-10 H (0-5) /hpf Urine RBC (Auto) 0-4 (0-4) /hpf U Hyaline Cast (Auto) 10-30 H (0-5) /lpf U Epithel Cells (Auto) >30 H (0-5) /lpf Urine Bacteria (Auto) Negative (Negative) Ur Renal Epithelial Cell Not Reportable SARS-CoV-2, RNA, NAAT NEGATIVE (NEGATIVE) 05/26/22 05/26/22 05/26/22 Range/Units 17:15 17:15 17:15 WBC 6.73 (4.8-10.8) K/ul RBC 4.02 (3.93-5.22) M/uL Hgb 11.8 L (12.0-16.0) g/dl Hct 33.8 L (34.1-44.9) % MCV 84.1 (80.0-100.0) fL MCH 29.4 (25.0-34.0) pg MCHC 34.9 (32.0-36.0) g/dL RDW Std Deviation 46.1 (36.4-46.3) fL RDW Coeff of Samantha 15.1 H (11.5-14.5) % Plt Count 372 (130-400) K/uL MPV 8.8 L (9.4-12.3) fL Immature Gran % (Auto) 0.6 % Neut % (Auto) 66.3 % Lymph % (Auto) 19.5 % Morris % (Auto) 12.3 % Eos % (Auto) 1.0 % Baso % (Auto) 0.3 % Neut # (Auto) 4.46 (1.4-6.5) K/uL Lymph # (Auto) 1.31 (1.2-3.4) K/uL Morris # (Auto) 0.83 H (0.24-0.82) K/uL Eos # (Auto) 0.07 (0-0.50) K/uL Baso # (Auto) 0.02 (0-0.2) K/uL Immature Gran # (Auto) 0.04 H (0.00-0.02) K/uL Sodium 133 L (136-145) mmol/L Potassium 3.0 L (3.5-5.1) mmol/L Chloride 101 (98-107) mmol/L Carbon Dioxide 20 L (21-32) mmol/L Anion Gap 12 H (3-11) BUN 30 H (6-23) mg/dl Creatinine 2.00 H D (0.6-1.2) mg/dl Est Cr Clr Drug Dosing 20.9 ml/min Est GFR ( Amer) 26.8 ml/min Est GFR (Non-Af Amer) 23.2 ml/min BUN/Creatinine Ratio 15.0 (10-20) Glucose 124 H (70-99(Fasting)) mg/dl POC Glucose (70-99) mg/dl Calcium 9.2 (8.5-10.1) mg/dl Phosphorus (2.5-4.9) mg/dl Magnesium 1.1 L (1.7-2.4) mg/dl Total Bilirubin 0.5 (0.2-1.0) mg/dl AST 21 (13-39) U/L ALT 24 (7-52) U/L Alkaline Phosphatase 95 (34-104) U/L Total Protein 6.9 (6.0-8.3) gm/dl Albumin 3.7 (3.4-5.0) gm/dl Globulin 3.2 (2.5-4.0) gm/dl Albumin/Globulin Ratio 1.2 (0.9-2) Urine Color Urine Appearance (Clear) Urine pH (4.5-7.5) Ur Specific [place] (1.000-1.030) Urine Protein (Negative) Urine Glucose (UA) (Negative) Urine Ketones (Negative) Urine Blood (Negative) Urine Nitrite (Negative) Urine Bilirubin (Negative) Urine Urobilinogen (Negative) Ur Leukocyte Esterase (Negative) Urine WBC (Auto) (0-5) /hpf Urine RBC (Auto) (0-4) /hpf U Hyaline Cast (Auto) (0-5) /lpf U Epithel Cells (Auto) (0-5) /lpf Urine Bacteria (Auto) (Negative) Ur Renal Epithelial Cell SARS-CoV-2, RNA, NAAT (NEGATIVE) Diagnostic Findings Abdomen/Pelvis CT 05/26/22 18:[address] WITHOUT CONTRAST CT DOSE: 479.03 mGy.cm HISTORY: diarrhea, acute kidney injury TECHNIQUE: Multiaxial CT images of the abdomen and pelvis were performed without contrast. A dose lowering technique was utilized adhering to the principles of ALARA. COMPARISON STUDY: None. FINDINGS: A few subcentimeter nodules within the left lower lobe measure up to 3 mm. These are similar to the [address] and therefore likely benign. No pneumoperitoneum. No pneumatosis. No fractures within the visualized osseous structures. Prior cholecystectomy. The unenhanced liver, spleen, and adrenal glands unremarkable. Lobular exophytic hypodense lesion within the pancreatic body on image 75 which measures 2.0 x 1.2 cm. This favors a cystic lesion of the pancreas such as a side branch intraductal papillary mucinous neoplasm. This is incompletely characterized on this noncontrast study. A 4 mm left renal calcification appears to be vascular. No definite renal or ureteral calculi. A few bilateral renal hypodense lesions are incompletely characters on this noncontrast study but statistically represent cysts. Dominant right renal hypodense lesion measures 3.3 cm. There appears a mild urothelial thickening within the right renal collecting system in comparison to the left. This could represent a mild pyelitis. The bladder is unremarkable. The uterus and ovaries are within normal limits. No pelvic free fluid. Suboptimal evaluation for bowel pathology due to the lack of intravenous and oral contrast. However, no evidence for bowel obstruction. The appendix is reportedly surgically absent. There appears a mild thickening of the descending colon and rectum consistent with a nonspecific mild proctocolitis. This favors an infectious or inflammatory process. IMPRESSION: 1. Mild thickening of the descending colon and rectum consistent with a nonspecific mild proctocolitis. This favors an infectious or inflammatory process. 2. No evidence for bowel obstruction. 3. There may be mild urothelial thickening within the right renal collecting system. Recommend correlation with urinalysis to exclude a pyelitis/pyelonephritis. 4. No renal or ureteral stones. No hydronephrosis. 5. Prior cholecystectomy. 6. A 2.0 x 1.2 cm lobular hypodense lesion within the pancreas body. This favors a cystic lesion of the pancreas such as a side branch intraductal papillary mucinous neoplasm. Consider one year abdominal MRI follow-up to ensure stability. ACT 112: Positive. There are findings on this exam that require communication between the performing entity and the patient following Patient Test Result Information Act ([place] Act 112) guidelines. Electronically signed by: William Swain M.D. 05/26/2022 6:32 PM PG Care Time/CCT Total # of Minutes Spent Total Time Spent with Patient: Total time spent is greater than 50% in coordination of care (as documented) at patient's floor/unit and/or counseling patient: Coding Level of Care Code 83166 Subseq Hosp Care Lvl 3 Diagnoses C. difficile colitis A04.72 Diabetes type 2, controlled E11.9 Hypertension I10 Dyslipidemia E78.5 Hypothyroidism E03.9 Nausea and vomiting R11.2 Paroxysmal atrial fibrillation I48.0
[2022-05-27] MEDS ORDERED: MAGNESIUM SULFATE / D5W 1 GM/100 ML BAG IV ONE (08:00)
[2022-05-27] MEDS: APIXABAN 5 MG TABLET PO SCH ×2 (08:12→20:11)
[2022-05-27] MEDS: ATENOLOL 50 MG TABLET PO SCH ×2 (08:12→20:11)
[2022-05-27] MEDS: DULoxetine HCL 30 MG CAP PO SCH ×2 (08:13→20:10)
[2022-05-27] MEDS: PANTOprazole 40 MG TAB PO SCH (08:13)
[2022-05-27] MEDS: dilTIAZem ER 180 MG CAPCR PO SCH ×2 (08:13→20:10)
[2022-05-27 08:28] LABS: BUN Creatinine Ratio 17.7 (10-20); Calcium 8.7 mg/dl (8.5-10.1); Creatinine Clr Calc Pharmacy 32.1 ml/min; Est GFR (African American) 45.2 ml/min; Magnesium 1.9 mg/dl (1.7-2.4); Phosphorus 3.1 mg/dl (2.5-4.9); Potassium 3.2 mmol/L (3.5-5.1)
[2022-05-27] MEDS ORDERED: PROMETHAZINE HCL 6.25 MG in SODIUM CHLORIDE 0.9% 50 ML IV PRN (09:23)
[2022-05-27] MEDS: POTASSIUM CHLORIDE 10 MEQ in LACTATED RINGER'S 1,000 ML IV SCH ×2 (09:47→23:08)
--- NOTE | 2022-05-27 14:43 | Electrocardiogram Report ---
Test Reason : Blood Pressure : / mmHG Vent. Rate : 064 BPM Atrial Rate : 064 BPM P-R Int : 158 ms QRS Dur : 164 ms QT Int : 478 ms P-R-T Axes : 062 -48 102 degrees QTc Int : 493 ms Sinus rhythm with occasional Premature ventricular complexes Left axis deviation Left bundle branch block Abnormal ECG When compared with ECG of 26-MAY-2019 11:37, Premature ventricular complexes are now Present T wave inversion more evident in Lateral leads Confirmed by Eduardo Browne ([id number]) on 05/27/2022 2:43:37 PM Referred By: REFERRED SELF Confirmed By:Eduardo Browne
[2022-05-27] MEDS: ATORVASTATIN 40 MG TAB PO SCH (20:12)
--- NOTE | 2022-05-27 22:56 | Billing Data ---
Date of Service May 27, 2022 Coding Level of Care Code 87072 Initial Inpt Care Lvl 3
[2022-05-28] MEDS: RASPBERRY SYRUP 5 ML UDP PO SCH ×5 (00:54→23:50)
[2022-05-28] MEDS: VANCOMYCIN HCL 125 MG/2.5ML SOLN PO SCH ×5 (00:54→23:50)
[2022-05-28 06:07] LABS: Hematocrit (blood only) 29.8 % (34.1-44.9); Hemoglobin 10.3 g/dl (12.0-16.0); Mean Corpuscular Hemoglobin 29.4 pg (25.0-34.0); Mean Corpuscular Hgb Conc 34.6 g/dL (32.0-36.0); Mean Corpuscular Volume 85.1 fL (80.0-100.0); Mean Platelet Volume 8.5 fL (9.4-12.3); Platelet Count 288 K/uL (130-400); RDW Coefficient of Variation 15.3 % (11.5-14.5); RDW Standard Deviation 47.2 fL (36.4-46.3); White Blood Count 4.76 K/ul (4.8-10.8)
[2022-05-28] MEDS: LEVOTHYROXINE SODIUM 88 MCG TABLET PO SCH (06:30)
[2022-05-28 06:41] LABS: Albumin Globulin Ratio 1.3 (0.9-2); BUN Creatinine Ratio 15.7 (10-20); Bilirubin,Total 0.4 mg/dl (0.2-1.0); Calcium 8.3 mg/dl (8.5-10.1); Creatinine Clr Calc Pharmacy 38.7 ml/min; Est GFR (African American) 56.5 ml/min; Est GFR (Non-African American) 48.8 ml/min; Globulin 2.4 gm/dl (2.5-4.0); Magnesium 1.4 mg/dl (1.7-2.4); Potassium 3.6 mmol/L (3.5-5.1); Total Protein 5.4 gm/dl (6.0-8.3)
--- NOTE | 2022-05-28 07:36 | Hospitalist Progress Note ---
Date of Service May 28, 2022 Assessment & Plan (1) C. difficile colitis: Plan: 81yo female with a history of T2DM, atrial fibrillation (on eliquis), HTN, HLD, hypothyroidism, and GERD presents with a three-month history of diarrhea, nausea, and vomiting, which as acutely worsened over the past 2-3 weeks. Patient was found to be positive for C. diff and Shiga-toxin E. coli on stool PCR upon admission. Also with hypoK, hypoMag, JOSR w/ Cr 2.0 (baseline 1.1-1.2) Of note, recent EGD w/ GI in April with Dr Aguero for ongoing n/v (nonerosive gastritis along with small hiatal hernia noted) Reported 1x/daily diarrhea/loose stool then Also, recently had PPI increased to protonix 40mg PO BID * ??PPI induced cdiff given denied recent abx/ill contacts, ?contaminent w/ endoscopy equipment C. diff colitis and Shiga-toxin E. coli with associated n/v/diarrhea 2-3 months reported, 1x/daily increased to 5x/daily over the past weekend PCR stool + for cdiff gene/toxin as well as shiga toxin e.coli CT abdomen/pelvis: mild thickening of descending colon and rectum c/w mild protocolitis; no evidence of obstruction; mild urothelial thickening of right collecting system; no hydronephrosis Continue PO vancomycin QID. No antibiotic intervention indicated for Shiga-toxin E. coli Avoid Imodium/GI slowing agents Diarrhea slowed, improvement in PO appetite No further IVF and will monitor ability to keep up with PO intake Cr back to baseline K 3.6, mag 1.4 and additional IV magnesium replacement ordered PT/OT consulted Continue supportive care/IV fluids/electrolyte replacement/antiemetics prn GERD: recent ongoing n/v, underwent EGD in April as outlined, no acute abn continue home protonix ONCE DAILY, mag replacement as above given recent increase to BID per GI for n/v, cannot r/o as cause for cdiff ?continued use vs switching to another agent vs terminal supervisor prevention/testing for cure? Hypokalemia/Hypomagnesemia K 3.0 on admit, 40meq PO x 1 provided. Mag 1.1 and 3gm IV ordered on admit, additional 1gm IV 05/27 and Mag wnl (HCTZ also placed on hold for dehydration/hyponatremia) Repeat K 3.4 and added K to IVF, repeat 3.6 Mag 1.4, additional IV replacement ordered Monitor repeats in AM JOSR pre-renal w/ elevated BUN/Cr on admit suspected 2nd to diarrhea losses, bicarb low (less diarrhea) Cr 2.0 on admit (baseline 1.1-1.2) IVF provided, extended to 2L with K as outlined and Cr back to baseline 1.08 on AM labs Will monitor PO intake/BP and resume BP medications pending ability to keep up with oral intake (tolerated first meal AM 05/27). Possibly resume meds in AM vs on Thursday Hypomagnesemia As above, repeat 1.4 and likely from slower replacement of potassium instead of PO replacement day prior> IV ordered and will monitor level in AM DM2 HbA1c 5.3% (October 2020), on dulaglutide weekly, metformin 1gm BID ISS while inpatient, BSGs acceptable and getting magnesium Monitor Hypertension Well controlled, typically on HCTZ, losartan, diltrazem, atenolol BP controlled currently and holding HCTZ/losartan for JOSR as above Monitor labs in AM/resume when stable/keeping up with PO intake, but suspect holding for ~additional 1-2 day while hydrating/keeping up w/ PO intake throughout today Hypodense lesion of pancreatic body Incidental finding on CT abdomen/pelvis of 2.0 x 1.2cm lobular hypodense lesion within pancreatic body facoring a cystic lesion of pancreas e.g. side branch intraductal papillary mucinous neoplasm Per radiology, consider one-year follow-up MRI to ensure stability Outpatient follow-up recommended Hypothyroidism Hx of, recent TSH earlier this year wnl. Repeat TSH wnl 1.365 Continues on synthroid 88mcg daily. Atrial fibrillation: History of such, paroxysmal NSR on examination, continues on Eliquis, diltiazem, atenolol HLD Continue atorvastatin (2) Diabetes type 2, controlled: (3) Hypertension: (4) Dyslipidemia: (5) Hypothyroidism: (6) Nausea and vomiting: (7) Paroxysmal atrial fibrillation: Plan continued inpatient stay, supportive care/electrolyte replacement and suspect likely ability for discahrge in AM PT/OT consulted -- safe for d/c home Admission and Anticipated Discharge Date Admission Date: May 26, 2022 Supervising Physician Co-Signing Physician Notes Attending Attestation - Chart reviewed, care plan d/w NANCI [place]. I agree w/ the burgess components of her documentation. Mehdi Leon MD Subjective Evaluated this morning. Doing much better. Had moved bowels last evening, more formed material. Urine light in color and back to baseline. She states she is amazed what IV fluids will do to make her feel better. Continued electrolyte replacement and supportive care. IVF to be discontinued after today and will monitor how she keeps up with oral intake with possible discharge tomorrow. No fever/chills, chest pain, shortness of breath, abdominal pain, nausea. Of note, she was in [place] for diarrhea but no abx there either and never found cause. Discussed likely from PPI use and recent increased with resulting increase in diarrhea. Questions/concerns addressed at this time. Review of Systems Review of Systems: All systems reviewed & are unremarkable except as noted in HPI & below Physical Exam Physical Exam: General: WD/WN female sitting up in bed, NAD, general pallor HEENT: normocephalic, atraumatic, mm slightly dry, trachea midline without deviation Resp: CTAB, no w/c/r, on RA CV: RRR, no m/r/g, no calf tenderness, pulses palpable GI: +BS throughout, nontender, soft, no guarding/rigidity : no sosa MSK/Neuro: moves all extremities, no focal deficits Psych: AOx3, pleasant and cooperative Skin: warm, dry, no obvious lesions Results & Data Results & Data ([facility]) Vital Signs (Past 12 Hours) Vital Signs Temp Pulse Resp BP Pulse Ox 05/27/22 22:45 36.9 C 62 18 160/72 H 98 Laboratory Results 05/28/22 05/28/22 05/28/22 Range/Units 09:04 05:52 05:52 WBC (4.8-10.8) K/ul RBC (3.93-5.22) M/uL Hgb (12.0-16.0) g/dl Hct (34.1-44.9) % MCV (80.0-100.0) fL MCH (25.0-34.0) pg MCHC (32.0-36.0) g/dL RDW Std Deviation (36.4-46.3) fL RDW Coeff of Samantha (11.5-14.5) % Plt Count (130-400) K/uL MPV (9.4-12.3) fL Sodium 135 L (136-145) mmol/L Potassium 3.6 (3.5-5.1) mmol/L Chloride 106 (98-107) mmol/L Carbon Dioxide 22 (21-32) mmol/L Anion Gap 7 (3-11) BUN 17 (6-23) mg/dl Creatinine 1.08 (0.6-1.2) mg/dl Est Cr Clr Drug Dosing 38.7 ml/min Est GFR ( Amer) 56.5 ml/min Est GFR (Non-Af Amer) 48.8 ml/min BUN/Creatinine Ratio 15.7 (10-20) Glucose 121 H (70-99(Fasting)) mg/dl POC Glucose 181 H (70-99) mg/dl Calcium 8.3 L (8.5-10.1) mg/dl Magnesium 1.4 L (1.7-2.4) mg/dl Total Bilirubin 0.4 (0.2-1.0) mg/dl AST 13 (13-39) U/L ALT 14 (7-52) U/L Alkaline Phosphatase 75 (34-104) U/L Total Protein 5.4 L D (6.0-8.3) gm/dl Albumin 3.0 L (3.4-5.0) gm/dl Globulin 2.4 L (2.5-4.0) gm/dl Albumin/Globulin Ratio 1.3 (0.9-2) TSH 1.365 (0.300-4.500) uIu/ml 05/28/22 05/27/22 05/27/22 Range/Units 05:52 20:33 17:04 WBC 4.76 L (4.8-10.8) K/ul RBC 3.50 L (3.93-5.22) M/uL Hgb 10.3 L (12.0-16.0) g/dl Hct 29.8 L (34.1-44.9) % MCV 85.1 (80.0-100.0) fL MCH 29.4 (25.0-34.0) pg MCHC 34.6 (32.0-36.0) g/dL RDW Std Deviation 47.2 H (36.4-46.3) fL RDW Coeff of Samantha 15.3 H (11.5-14.5) % Plt Count 288 (130-400) K/uL MPV 8.5 L (9.4-12.3) fL Sodium (136-145) mmol/L Potassium (3.5-5.1) mmol/L Chloride (98-107) mmol/L Carbon Dioxide (21-32) mmol/L Anion Gap (3-11) BUN (6-23) mg/dl Creatinine (0.6-1.2) mg/dl Est Cr Clr Drug Dosing ml/min Est GFR ( Amer) ml/min Est GFR (Non-Af Amer) ml/min BUN/Creatinine Ratio (10-20) Glucose (70-99(Fasting)) mg/dl POC Glucose 136 H 118 H (70-99) mg/dl Calcium (8.5-10.1) mg/dl Magnesium (1.7-2.4) mg/dl Total Bilirubin (0.2-1.0) mg/dl AST (13-39) U/L ALT (7-52) U/L Alkaline Phosphatase (34-104) U/L Total Protein (6.0-8.3) gm/dl Albumin (3.4-5.0) gm/dl Globulin (2.5-4.0) gm/dl Albumin/Globulin Ratio (0.9-2) TSH (0.300-4.500) uIu/ml 05/27/22 Range/Units 12:20 WBC (4.8-10.8) K/ul RBC (3.93-5.22) M/uL Hgb (12.0-16.0) g/dl Hct (34.1-44.9) % MCV (80.0-100.0) fL MCH (25.0-34.0) pg MCHC (32.0-36.0) g/dL RDW Std Deviation (36.4-46.3) fL RDW Coeff of Samantha (11.5-14.5) % Plt Count (130-400) K/uL MPV (9.4-12.3) fL Sodium (136-145) mmol/L Potassium (3.5-5.1) mmol/L Chloride (98-107) mmol/L Carbon Dioxide (21-32) mmol/L Anion Gap (3-11) BUN (6-23) mg/dl Creatinine (0.6-1.2) mg/dl Est Cr Clr Drug Dosing ml/min Est GFR ( Amer) ml/min Est GFR (Non-Af Amer) ml/min BUN/Creatinine Ratio (10-20) Glucose (70-99(Fasting)) mg/dl POC Glucose 131 H (70-99) mg/dl Calcium (8.5-10.1) mg/dl Magnesium (1.7-2.4) mg/dl Total Bilirubin (0.2-1.0) mg/dl AST (13-39) U/L ALT (7-52) U/L Alkaline Phosphatase (34-104) U/L Total Protein (6.0-8.3) gm/dl Albumin (3.4-5.0) gm/dl Globulin (2.5-4.0) gm/dl Albumin/Globulin Ratio (0.9-2) TSH (0.300-4.500) uIu/ml PG Care Time/CCT Total # of Minutes Spent Total Time Spent with Patient: Total time spent is greater than 50% in coordination of care (as documented) at patient's floor/unit and/or counseling patient: Coding Level of Care Code 86498 Subseq Hosp Care Lvl 3 Diagnoses C. difficile colitis A04.72 Diabetes type 2, controlled E11.9 Hypertension I10 Dyslipidemia E78.5 Hypothyroidism E03.9 Nausea and vomiting R11.2 Paroxysmal atrial fibrillation I48.0
[2022-05-28] MEDS: INSULIN ASPART PER UNIT SC SCH ×4 (09:45→21:29)
[2022-05-28] MEDS: dilTIAZem ER 180 MG CAPCR PO SCH ×2 (09:46→21:28)
[2022-05-28] MEDS: APIXABAN 5 MG TABLET PO SCH ×2 (09:46→21:28)
[2022-05-28] MEDS: PANTOprazole 40 MG TAB PO SCH (09:46)
[2022-05-28] MEDS: DULoxetine HCL 30 MG CAP PO SCH ×2 (09:46→21:29)
[2022-05-28] MEDS: MAGNESIUM SULFATE / D5W 1 GM/100 ML BAG IV SCH ×4 (09:47→16:50)
[2022-05-28] MEDS: ATENOLOL 50 MG TABLET PO SCH ×2 (10:43→21:29)
[2022-05-28] MEDS: ATORVASTATIN 40 MG TAB PO SCH (21:29)
[2022-05-29] MEDS: VANCOMYCIN HCL 125 MG/2.5ML SOLN PO SCH ×2 (05:50→12:34)
[2022-05-29] MEDS: RASPBERRY SYRUP 5 ML UDP PO SCH ×2 (05:50→12:35)
[2022-05-29] MEDS: LEVOTHYROXINE SODIUM 88 MCG TABLET PO SCH (05:50)
[2022-05-29 06:24] LABS: Hematocrit (blood only) 31.5 % (34.1-44.9); Hemoglobin 10.7 g/dl (12.0-16.0); Mean Corpuscular Hemoglobin 28.8 pg (25.0-34.0); Mean Corpuscular Volume 84.9 fL (80.0-100.0); Mean Platelet Volume 8.7 fL (9.4-12.3); Platelet Count 321 K/uL (130-400); RDW Coefficient of Variation 14.9 % (11.5-14.5); RDW Standard Deviation 46.1 fL (36.4-46.3); Red Blood Count 3.71 M/uL (3.93-5.22); White Blood Count 4.64 K/ul (4.8-10.8)
[2022-05-29 06:42] LABS: Calcium 8.1 mg/dl (8.5-10.1); Creatinine Clr Calc Pharmacy 41.8 ml/min; Est GFR (African American) 62.1 ml/min; Est GFR (Non-African American) 53.5 ml/min; Magnesium 1.9 mg/dl (1.7-2.4); Potassium 3.4 mmol/L (3.5-5.1)
[2022-05-29] MEDS ORDERED: POTASSIUM CHLORIDE CRTAB 20 MEQ TABCR PO STA (07:15)
--- NOTE | 2022-05-29 07:17 | Hospitalist Progress Note ---
Date of Service May 29, 2022 Assessment & Plan (1) C. difficile colitis: Plan: 81yo female with a history of T2DM, atrial fibrillation (on eliquis), HTN, HLD, hypothyroidism, and GERD presents with a three-month history of diarrhea, nausea, and vomiting, which as acutely worsened over the past 2-3 weeks. Patient was found to be positive for C. diff and Shiga-toxin E. coli on stool PCR upon admission. Also with hypoK, hypoMag, JOSR w/ Cr 2.0 (baseline 1.1-1.2) Of note, recent EGD w/ GI in April with Dr Aguero for ongoing n/v (nonerosive gastritis along with small hiatal hernia noted) Reported 1x/daily diarrhea/loose stool then Also, recently had PPI increased to protonix 40mg PO BID * ??PPI induced cdiff given denied recent abx/ill contacts, ?contaminent w/ endoscopy equipment C. diff colitis and Shiga-toxin E. coli with associated n/v/diarrhea 2-3 months reported, 1x/daily increased to 5x/daily over the past weekend PCR stool + for cdiff gene/toxin as well as shiga toxin e.coli CT abdomen/pelvis: mild thickening of descending colon and rectum c/w mild protocolitis; no evidence of obstruction; mild urothelial thickening of right collecting system; no hydronephrosis Continue PO vancomycin QID -- 05/27 through 06/02 No antibiotic intervention indicated for Shiga-toxin E. coli Avoid Imodium/GI slowing agents Diarrhea slowed, improvement in PO appetite No further IVF and will monitor ability to keep up with PO intake --> BUN/Cr stable Cr back to baseline, 1.0 (better than usual) K 3.4 -- 20meq PO ordered --> of note, on HCTZ at home, ?if need replacement but also usually on losartan as well Mag improved and stable 1.9 PT/OT consulted Continue supportive care/IV fluids/electrolyte replacement/antiemetics prn GERD: recent ongoing n/v, underwent EGD in April as outlined, no acute abn continue home protonix ONCE DAILY, mag replacement as above given recent increase to BID per GI for n/v, cannot r/o as cause for cdiff ?continued use vs switching to another agent vs termite helper prevention/testing for cure? Hypokalemia/Hypomagnesemia K 3.0 on admit, 40meq PO x 1 provided. Mag 1.1 and 3gm IV ordered on admit, additional 1gm IV 05/27 and Mag wnl (HCTZ also placed on hold for dehydration/hyponatremia) Repeat K 3.4 and added K to IVF, repeat 3.6 Mag 1.4, additional IV replacement ordered Monitor repeats in AM JOSR pre-renal w/ elevated BUN/Cr on admit suspected 2nd to diarrhea losses, bicarb low (less diarrhea) Cr 2.0 on admit (baseline 1.1-1.2) IVF provided, extended to 2L with K as outlined and Cr back to baseline 1.08 on AM labs Will monitor PO intake/BP and resume BP medications pending ability to keep up with oral intake (tolerated first meal AM 05/27). Possibly resume meds in AM vs on Thursday Hypomagnesemia As above, repeat 1.4 and likely from slower replacement of potassium instead of PO replacement day prior> IV ordered and will monitor level in AM DM2 HbA1c 5.3% (October 2020), on dulaglutide weekly, metformin 1gm BID ISS while inpatient, BSGs acceptable and getting magnesium Monitor Hypertension Well controlled, typically on HCTZ, losartan, diltrazem, atenolol BP controlled currently and holding HCTZ/losartan for JOSR as above Monitor labs in AM/resume when stable/keeping up with PO intake, but suspect holding for ~additional 1-2 day while hydrating/keeping up w/ PO intake throughout today Hypodense lesion of pancreatic body Incidental finding on CT abdomen/pelvis of 2.0 x 1.2cm lobular hypodense lesion within pancreatic body facoring a cystic lesion of pancreas e.g. side branch intraductal papillary mucinous neoplasm Per radiology, consider one-year follow-up MRI to ensure stability Outpatient follow-up recommended Hypothyroidism Hx of, recent TSH earlier this year wnl. Repeat TSH wnl 1.365 Continues on synthroid 88mcg daily. Atrial fibrillation: History of such, paroxysmal NSR on examination, continues on Eliquis, diltiazem, atenolol HLD Continue atorvastatin (2) Diabetes type 2, controlled: (3) Hypertension: (4) Dyslipidemia: (5) Hypothyroidism: (6) Nausea and vomiting: (7) Paroxysmal atrial fibrillation: Plan continued inpatient stay, supportive care/electrolyte replacement and suspect likely ability for discahrge in AM PT/OT consulted -- safe for d/c home Admission and Anticipated Discharge Date Admission Date: May 26, 2022 Results & Data Results & Data ([facility]) Vital Signs (Past 12 Hours) Vital Signs Temp Pulse Resp BP Pulse Ox O2 Del Method 05/28/22 22:16 36.8 C 63 18 149/80 H 100 Room Air Laboratory Results 05/29/22 05/29/22 05/28/22 Range/Units 05:34 05:34 20:56 WBC 4.64 L (4.8-10.8) K/ul RBC 3.71 L (3.93-5.22) M/uL Hgb 10.7 L (12.0-16.0) g/dl Hct 31.5 L (34.1-44.9) % MCV 84.9 (80.0-100.0) fL MCH 28.8 (25.0-34.0) pg MCHC 34.0 (32.0-36.0) g/dL RDW Std Deviation 46.1 (36.4-46.3) fL RDW Coeff of Samantha 14.9 H (11.5-14.5) % Plt Count 321 (130-400) K/uL MPV 8.7 L (9.4-12.3) fL Sodium 135 L (136-145) mmol/L Potassium 3.4 L (3.5-5.1) mmol/L Chloride 105 (98-107) mmol/L Carbon Dioxide 23 (21-32) mmol/L Anion Gap 7 (3-11) BUN 13 (6-23) mg/dl Creatinine 1.00 (0.6-1.2) mg/dl Est Cr Clr Drug Dosing 41.8 ml/min Est GFR ( Amer) 62.1 ml/min Est GFR (Non-Af Amer) 53.5 ml/min BUN/Creatinine Ratio 13.0 (10-20) Glucose 118 H (70-99(Fasting)) mg/dl POC Glucose 128 H (70-99) mg/dl Calcium 8.1 L (8.5-10.1) mg/dl Magnesium 1.9 (1.7-2.4) mg/dl 08/17/22 08/17/22 08/17/22 Range/Units 16:46 11:58 09:04 WBC (4.8-10.8) K/ul RBC (3.93-5.22) M/uL Hgb (12.0-16.0) g/dl Hct (34.1-44.9) % MCV (80.0-100.0) fL MCH (25.0-34.0) pg MCHC (32.0-36.0) g/dL RDW Std Deviation (36.4-46.3) fL RDW Coeff of Samantha (11.5-14.5) % Plt Count (130-400) K/uL MPV (9.4-12.3) fL Sodium (136-145) mmol/L Potassium (3.5-5.1) mmol/L Chloride (98-107) mmol/L Carbon Dioxide (21-32) mmol/L Anion Gap (3-11) BUN (6-23) mg/dl Creatinine (0.6-1.2) mg/dl Est Cr Clr Drug Dosing ml/min Est GFR ( Amer) ml/min Est GFR (Non-Af Amer) ml/min BUN/Creatinine Ratio (10-20) Glucose (70-99(Fasting)) mg/dl POC Glucose 134 H 123 H 181 H (70-99) mg/dl Calcium (8.5-10.1) mg/dl Magnesium (1.7-2.4) mg/dl PG Care Time/CCT Total # of Minutes Spent Total Time Spent with Patient: Total time spent is greater than 50% in coordination of care (as documented) at patient's floor/unit and/or counseling patient: Coding Diagnoses C. difficile colitis A04.72 Diabetes type 2, controlled E11.9 Hypertension I10 Dyslipidemia E78.5 Hypothyroidism E03.9 Nausea and vomiting R11.2 Paroxysmal atrial fibrillation I48.0
[2022-05-29] MEDS: dilTIAZem ER 180 MG CAPCR PO SCH (08:49)
[2022-05-29] MEDS: ATENOLOL 50 MG TABLET PO SCH (08:50)
[2022-05-29] MEDS: DULoxetine HCL 30 MG CAP PO SCH (08:50)
[2022-05-29] MEDS: APIXABAN 5 MG TABLET PO SCH (08:50)
[2022-05-29] MEDS: PANTOprazole 40 MG TAB PO SCH (08:50)
[2022-05-29] MEDS: INSULIN ASPART PER UNIT SC SCH ×2 (08:51→12:32)
--- NOTE | 2022-05-29 09:24 | Discharge Summary ---
Date of Service May 29, 2022 Admission HPI Per Admitting Provider 81yo female with a history of T2DM, atrial fibrillation (on eliquis), HTN, HLD, hypothyroidism, and GERD presents with a three-month history of diarrhea, nausea, and vomiting, which as acutely worsened over the past 2-3 weeks. Patient initially was experiencing about one loose stool per day until 2-3 weeks ago when she began having 3-5 loose bowel movements each day. BMs are not oily, dark/tarry, nor bloody. Symptoms have been associated with mild abdominal cramping this past week but have not been associated with abdominal pain otherwise. Patient also endorses poor PO intake and some mild lightheadedness upon standing. Patient was recently hospitalized at [place] for the nausea/diarrhea; workup was unrevealing and at that time patient tested negative for C. diff (per patient). Patient denies fever, CP, SOB, and urinary symptoms. No recent travel. Upon arrival, vitals were stable; no elevated BP, no tachycardia, no tachypnea, spO2 adequate on room air. Initial labs were notable for mild hypokalemia (3.0), hypomagnesemia (1.1), and elevated creatinine (2.0, baseline 1.1 - 1.2). In the ED, stool culture was positive for C. diff gene PCR, C. diff toxin, and E. coli (Shinga) toxin PCR. Covid testing was negative, as was other stool culture testing. EKG: NSR with widened QRS with occasional PVCs. Surrogate decision-maker in case of an emergency: daughter Kasey Bailey (cell: [phone]) or son Sherif Hoang (cell: [phone]) Admission Exam Per Admitting Provider Constitutional: well-appearing, no acute distress HEENT: NCAT, no conjunctival injection CV: regular rhythm, no murmur appreciated, extremities well-perfused, no LE edema Resp: CTABL, no wheezes/rales/rhonchi appreciated, no increased work of breathing GI: soft, nondistended, mild epigastric tenderness, nontender elsewhere, BS normoactive MSK: no gross deformities appreciated Skin: warm, dry, no rash appreciated Neuro: alert, oriented, no focal neurologic deficit appreciated Principal Diagnosis Cdiff , Shiga Ecoli Diarrhea, likely PPI induced Discharge Exam General: WD/WN female sitting up in bed, NAD, general pallor HEENT: normocephalic, atraumatic, mm slightly dry, trachea midline without deviation Resp: CTAB, no w/c/r, on RA CV: RRR, no m/r/g, no calf tenderness, pulses palpable, 1+ edema b/l LE GI: +BS throughout, nontender, soft, no guarding/rigidity : no sosa MSK/Neuro: moves all extremities, no focal deficits Psych: AOx3, pleasant and cooperative Skin: warm, dry, no obvious lesions Discharge Data Allergies Allergy/AdvReac Type Severity Reaction Status Date / Time rivaroxaban [From Xarelto] AdvReac Unknown WAKE UP Verified 05/26/22 20:41 WITH A COUPLE MOUTH FULLS OF BLOOD Consultations 05/26/22 19:19 ED Decision to Admit Stat Ordered Studies Abdomen/Pelvis CT 05/26/22 18:[address] WITHOUT CONTRAST CT DOSE: 479.03 mGy.cm HISTORY: diarrhea, acute kidney injury TECHNIQUE: Multiaxial CT images of the abdomen and pelvis were performed without contrast. A dose lowering technique was utilized adhering to the principles of ALARA. COMPARISON STUDY: None. FINDINGS: A few subcentimeter nodules within the left lower lobe measure up to 3 mm. These are similar to the [address] and therefore likely benign. No pneumoperitoneum. No pneumatosis. No fractures within the visualized osseous structures. Prior cholecystectomy. The unenhanced liver, spleen, and adrenal glands unremarkable. Lobular exophytic hypodense lesion within the pancreatic body on image 75 which measures 2.0 x 1.2 cm. This favors a cystic lesion of the pancreas such as a side branch intraductal papillary mucinous neoplasm. This is incompletely characterized on this noncontrast study. A 4 mm left renal calcification appears to be vascular. No definite renal or ureteral calculi. A few bilateral renal hypodense lesions are incompletely characters on this noncontrast study but statistically represent cysts. Dominant right renal hypodense lesion measures 3.3 cm. There appears a mild urothelial thickening within the right renal collecting system in comparison to the left. This could represent a mild pyelitis. The bladder is unremarkable. The uterus and ovaries are within normal limits. No pelvic free fluid. Suboptimal evaluation for bowel pathology due to the lack of intravenous and oral contrast. However, no evidence for bowel obstruction. The appendix is reportedly surgically absent. There appears a mild thickening of the descending colon and rectum consistent with a nonspecific mild proctocolitis. This favors an infectious or inflammatory process. IMPRESSION: 1. Mild thickening of the descending colon and rectum consistent with a nonspecific mild proctocolitis. This favors an infectious or inflammatory process. 2. No evidence for bowel obstruction. 3. There may be mild urothelial thickening within the right renal collecting system. Recommend correlation with urinalysis to exclude a pyelitis/pyelonephritis. 4. No renal or ureteral stones. No hydronephrosis. 5. Prior cholecystectomy. 6. A 2.0 x 1.2 cm lobular hypodense lesion within the pancreas body. This favors a cystic lesion of the pancreas such as a side branch intraductal papillary mucinous neoplasm. Consider one year abdominal MRI follow-up to ensure stability. ACT 112: Positive. There are findings on this exam that require communication between the performing entity and the patient following Patient Test Result Information Act ([place] Act 112) guidelines. Electronically signed by: William Swain M.D. 05/26/2022 6:32 PM Hospital Course (1) C. difficile colitis: C. diff colitis and Shiga-toxin E. coli with associated n/v/diarrhea 81yo female with a history of T2DM, atrial fibrillation (on eliquis), HTN, HLD, hypothyroidism, and GERD presents with a three-month history of diarrhea, nausea, and vomiting, which as acutely worsened over the weekend after having her protonix increased to 40mg BID w/ recent EGD for continued n/v with Dr Aguero in April which showed nonerosive gastritis and small hiatal hernia. Reported was going 1-2x/daily BM loose stool, increased to 5x/daily over the past weekend PCR stool testing positive for C. diff gene and toxin and Shiga-toxin E. coli on stool PCR upon admission along with JOSR with Cr up to 2.0 in patient with baseline Cr 1.1-1.2 secondary to dehydration/diarrhea/poor PO intake [employer]. ALso hypoK/hypomagnesemia as well CT abdomen/pelvis: mild thickening of descending colon and rectum c/w mild proctocolitis; no evidence of obstruction; mild urothelial thickening of right collecting system; no hydronephrosis Continue PO vancomycin QID -- 05/27 through 06/02 No antibiotic intervention indicated for Shiga-toxin E. coli Avoid Imodium/GI slowing agents Supportive care/electrolyte replacement as needed IVF d/c'd 05/28 and keeping up with PO intake. Cr improved to 1.0 Forming of stool and wanting to go home. Outpatient f/u with PCP and GI. GERD: recent ongoing n/v, underwent EGD in April as outlined, no acute abn continue home protonix ONCE DAILY, mag replacement as above given recent increase to BID per GI for n/v, cannot r/o as cause for cdiff Hypokalemia/Hypomagnesemia Low on admit, 2nd to dehydration/HCTZ/diarrheal losses Replacement ordered, Mag 1.9 prior to d/c K 3.4 and additional PO replacement ordered prior to discharge and instructed to eat banana daily in meantime (BRANDEN also onhold which should help w/ potassium sparing but was held on admit due to JOSR) Repeat labs given for thursday to check BMP to ensure K stable, Cr stable as well as mag Recommended if continued hypokalemia to consider medication changes to her HCTZ v adding supplement while on that medication JOSR pre-renal w/ elevated BUN/Cr on admit suspected 2nd to diarrhea losses, bicarb low (less diarrhea) which resolved w/ hydration and decreased diarrhea IVF provided, since discontinued HCTZ/losartan on hold, HCTZ resumed for some LE edema likely from IVF prior to discharge Cr 1.0 prior to discharge, repeat labs on thursday Hypomagnesemia low on admit, secondary to hypok/diarrhea/ppi use ppi once daily, IV replacement ordered repeat wnl and given labs for thursday to ensure stay stable DM2 Well controlled HbA1c 5.3% (October 2020), on dulaglutide weekly, metformin 1gm BID ISS while inpatient, BSGs acceptable Continue home meds at discharge adn f/u PCP Hypertension Well controlled, typically on HCTZ, losartan, diltiazem, atenolol BP controlled and had held HCTZ/losartan for JOSR, resumed HCTZ prior to d/c BP 131/73 Hypodense lesion of pancreatic body Incidental finding on CT abdomen/pelvis of 2.0 x 1.2cm lobular hypodense lesion within pancreatic body facoring a cystic lesion of pancreas e.g. side branch intraductal papillary mucinous neoplasm Per radiology, consider one-year follow-up MRI to ensure stability Outpatient follow-up recommended and included on d/c instructions Hypothyroidism Hx of, recent TSH earlier this year wnl. Repeat TSH wnl 1.365 Continued on synthroid 88mcg daily. Atrial fibrillation: History of such, paroxysmal NSR on examination, continued on Eliquis, diltiazem, atenolol HLD Continued atorvastatin (2) Diabetes type 2, controlled: (3) Hypertension: (4) Dyslipidemia: (5) Hypothyroidism: (6) Nausea and vomiting: (7) Paroxysmal atrial fibrillation: Plan discharged home Total Time Total Time Spent Total Time Spent (In Minutes): 60 Discharge Plan Discharge Items Patient Disposition: Home - Self-Care Reason For Visit: DIARRHEA, C.DIFF Discharge Diagnosis: Cdiff, Ecoli diarrhea Goals: You have been hospitalized for an acute medical problem. During your stay at [facility], we have made an effort to correct the problem that brought you to the hospital while keeping you as comfortable as possible. Medications were used to bring your condition under control and your discharge instructions will include directions for any medications you should take after leaving the hospital. Please make sure you see your Primary Care Provider as part of your follow up plan. Activity: Resume your previous activity Non-emergency contact: Primary Care Provider and Parts Cleaner Call non-emergency contact if: you have any medication questions, your symptoms worsen, your pain is not controlled and you have a fever Follow-up/Referrals: Gavin Aguero, [Physician] - 06/18/22 11:00 am Ham Baldwin [Primary Care Provider] - 06/04/22 11:00 am Diet: Carb Consistent or DM2 and Heart Healthy Ambulatory Orders: Basic Metabolic Panel (Routine) Timeframe: 20220602 Location: Determined by Patient Ordered By: Vanda Montana Magnesium (Routine) Timeframe: 20220602 Location: Determined by Patient Ordered By: Vanda Montana Addtl Attending Provider Instructions: You have been hospitalized for diarrhea. This was most likely due to the increase in Protonix to twice daily as an outpatient given no recent sick contacts and no recent antibiotic use. Your stool was tested and found to have been positive for C.diff as well as E.coli. You have been treated with supportive care with IV fluids and electrolyte replacement along with antibiotic called vancomycin for the infection in your stool. The VANCOMYCIN is taken by mouth, four times daily, and you will need to contin ue this for a total of 7 days, until June 02. You should continue to stay hydrated and keep up with oral intake and DO NOT take any Imodium or things to slow stool down during this time. You should eat a banana a day and I have placed orders for repeat BMP and magnesium for thursday. If your potassium is low (as can be from your hydrochlorithiazide for blood pressure), your PCP may decide to start replacement of this while on this medication. Please follow up with your primary care provider in the next 7-10 days to monitor your progress after discharge from the hospital. Of note, there was an incidental finding of your pancreas which radiology is recommending having a 1 year follow up MRI to ensure this finding is stable. Please return to the ER with any chest pain, shortness of breath, increased abdominal pain or diarrhea,inability to keep up with oral intake or for any other symptoms concerning for you. It has been a pleasure being a part of the medical team while you have been in the hospital. Take care! Pending Studies at Discharge: No Stand-Alone Forms: My [facility] Medications and DC Order Prescriptions: Continued atorvastatin 80 mg tablet 80 mg PO QPM Qty: 90 3RF metformin 1,000 mg tablet 1,000 mg PO BID Qty: 180 1RF Eliquis 5 mg tablet 5 mg PO BID Qty: 180 3RF duloxetine [Cymbalta] 30 mg capsule,delayed release(DR/EC) 30 mg PO BID Trulicity 0.75 mg/0.5 mL pen injector 0.75 mg subcut .ON HOLD Label Comments: [facility] Rx Instructions: 0.75 mg subcut weekly losartan [Cozaar] 100 mg tablet 100 mg PO QAM diltiazem HCl 180 mg Capsule,Ext.Rel 24h Degradable 180 mg PO BID atenolol 50 mg Tablet 50 mg PO BID multivitamin Tablet 1 tab PO QAM hydrochlorothiazide 12.5 mg Capsule 12.5 mg PO QAM cyanocobalamin (vitamin B-12) [Vitamin B-12] 1,000 mcg Tablet 1,000 mcg PO DAILY cholecalciferol (vitamin D3) [Vitamin D3] 1,000 unit Capsule 1,000 unit PO DAILY PreserVision AREDS-2 [id number] nu-[id number]-[id number]-mg capsule 1 tab PO BID levothyroxine 88 mcg tablet 88 mcg PO QAM ondansetron 4 mg tablet,disintegrating 4 mg PO Q8H PRN (Reason: nausea and vomiting) Qty: 30 0RF pantoprazole 40 mg tablet,delayed release (DR/EC) 40 mg PO DAILY acetaminophen [Tylenol Extra Strength] 500 mg Tablet 1,000 mg PO UD PRN (Reason: Pain) Discharge Orders: Discharge Order (Routine); Ordered 05/29/22 Ordered By: Vanda Hoffman/Other Patient Handouts: What Is C. Diff? Admission Data Admit Date/Time: 05/26/22 20:24 Attending Provider: Mehdi Leon Admit Provider: Gordon Sweet Primary Care Provider: Ham Baldwin Other Providers: [place] Other Interventions: Discharge Summary Assessment (RN) Last Done: 05/29/22 14:40 Discharge Summary Assessment (RN) Last Done: 05/29/22 13:39 Supervising Physician Co-Signing Physician Notes Attending Attestation and Discharge Note: Pt seen/examined, chart reviewed, discharge care plan d/w NANCI Montana. I agree w/ the burgess components of her discharge documentation. 81yo female with chronic diarrhea of several months duration. Recently hospitalized at [facility] where, by report, c diff testing was negative. Over the last 2-3 weeks the diarrhea has been much worse. Stool [employer] testing showed POSITIVE c diff toxin & gene. Ecoli shiga toxin was also positive - significance of this was uncertain. She was treated for c diff enteritis with vancomycin and her diarrhea improved with such. Treatment for e.coli was deferred. She will complete a course of PO vancomycin at discharge. GI f/u with [facility] advised in light of acute/chronic diarrhea, cyst on pancreas, etc. Discharge exam - gen - NAD, looks good mouth - MMM neck - no JVD heart - RRR, s1 s2 lungs - soft NT ND BS+ ext - no edema, pulses 2+ b/l psych - a/o x 3 Mehdi Leon MD Coding Level of Care Code D/C DAY MANAGEMENT >30 MINS Diagnoses C. difficile colitis A04.72 Diabetes type 2, controlled E11.9 Hypertension I10 Dyslipidemia E78.5 Hypothyroidism E03.9 Nausea and vomiting R11.2 Paroxysmal atrial fibrillation I48.0
[2022-05-29] MEDS ORDERED: POTASSIUM CHLORIDE 10 MEQ TABCR PO STA (09:25)
[2022-05-29] MEDS ORDERED: hydroCHLOROthiazide 25 MG TAB PO STA (09:25)
== END 2022-05-29 14:40 | disposition home or self-care (01) | DRG 372 ==
LOC: ED 16:52 → SUATTDRO 20:24 → EDINP 20:24 → 3E 05-27 00:29
DX: E83.42 Hypomagnesemia; Z88.8 Allergy status to other drugs, medicaments and biological substances; A04.72 Enterocolitis due to Clostridium difficile, not specified as recurrent; R19.7 Diarrhea, unspecified; I10 Essential (primary) hypertension; Z79.01 Long term (current) use of anticoagulants; E87.6 Hypokalemia; B96.23 Unspecified Shiga toxin-producing Escherichia coli [E. coli] [STEC] as the cause of diseases classified elsewhere; Z79.890 Hormone replacement therapy; K21.9 Gastro-esophageal reflux disease without esophagitis; D49.0 Neoplasm of unspecified behavior of digestive system; I48.0 Paroxysmal atrial fibrillation; E03.9 Hypothyroidism, unspecified; E11.9 Type 2 diabetes mellitus without complications; E78.5 Hyperlipidemia, unspecified; N17.9 Acute kidney failure, unspecified; Z79.84 Long term (current) use of oral hypoglycemic drugs